=== PATIENT | female | born 1955 | race Two or more races ===

== ENCOUNTER 2020-11-01 14:16 | Outpatient (REF) | payer BC, SELFPAY | END 2020-11-01 14:17 | disposition home or self-care (01) | LOC: HO.LAB 14:16 | PROVIDERS: Visit Provider Internal Medicine | DX: Z20.822 Contact with and (suspected) exposure to COVID-19 (principal) | CPT/HCPCS: 36415; C9803; U0003 ==

== ENCOUNTER 2020-11-29 13:46 | Outpatient (REF) | payer BC, SELFPAY | END 2020-11-29 13:47 | disposition home or self-care (01) | LOC: HO.LAB 13:46 | PROVIDERS: PCP Internal Medicine; Visit Provider Internal Medicine | DX: Z20.822 Contact with and (suspected) exposure to COVID-19 (principal) | CPT/HCPCS: 36415; C9803; U0003; U0005 ==

== ENCOUNTER 2020-12-11 10:05 | Outpatient (REF) | payer BC, SELFPAY ==
[2020-12-11 10:32] LABS: MANUAL DIFF FLAG NO
[2020-12-11 10:36] LABS: Basophils Percent Auto 0.3 % (0-2); Eosinophils Absolute Auto 0.1 X10*3/uL (0.0-0.4); Eosinophils Percent Auto 1.5 % (0-4); Hematocrit 38.5 % (37-47); Hemoglobin 12.2 g/dl (12.0-16.0); Imm Gran Abs Auto 0.02 X10*3/uL (0.00-0.03); Imm Gran Pct Auto 0.3 % (0.0-0.4); Lymphocytes Percent Auto 34.3 % (20-40); Mean Corpuscular HGB Conc 31.7 g/dl (31.0-35.0); Mean Corpuscular Hemoglobin 25.5 pg (27.0-33.0); Mean Corpuscular Volume 80.5 fL (80-98); Mean Platelet Volume 10.7 fL (9.4-12.3); Monocytes Absolute Auto 0.3 X10*3/uL (0.1-1.2); Monocytes Percent Auto 5.7 % (2-11); Neutrophils Absolute Auto 3.4 X10*3/uL (2.0-8.3); Neutrophils Percent Auto 57.9 % (45-73); Platelet Count 163 X10*3/uL (160-400); Red Blood Count 4.78 X10*6/uL (4.20-5.50); Red Cell Distribution Width 14.8 % (11.0-16.0); White Blood Count 5.8 X10*3/uL (4.8-10.8)
[2020-12-11 11:00] LABS: Alanine Aminotransferase 27 U/L (0-31); Albumin Level 4.4 g/dL (3.5-5.0); Alkaline Phosphatase 110 U/L (39-117); Anion Gap 12 (12-20); Aspartate Amino Transferase 22 U/L (5-31); Bilirubin Total 0.7 mg/dL (0.0-1.0); Blood Urea Nitrogen 16 mg/dL (9-16); Carbon Dioxide 28 mmol/L (22-29); Chloride 105 mmol/L (96-108); Cholesterol 154 mg/dL; Estimated Glomerular Filt Rate > 60; Glucose Fasting 94 mg/dL (60-99); HDL Cholesterol 48 mg/dL; LDL Cholesterol Calculated 91 mg/dl; Potassium 4.3 mmol/L (3.3-5.1); Sodium 141 mmol/L (135-145); Triglycerides 79 mg/dL
[2020-12-11 11:22] LABS: Thyroid Stimulating Hormone 2.36 uIU/mL (0.32-4.0)
== END 2020-12-11 10:06 | disposition home or self-care (01) ==
LOC: HO.LAB 10:05
PROVIDERS: PCP Internal Medicine; Visit Provider Internal Medicine
DX: Z00.00 Encounter for general adult medical examination without abnormal findings (principal); E11.9 Type 2 diabetes mellitus without complications; E03.9 Hypothyroidism, unspecified
CPT/HCPCS: 36415; 80053; 80061; 84443; 85025

== ENCOUNTER 2021-01-06 13:00 | Outpatient (REF) | payer BC, SELFPAY ==
[2021-01-07 10:15] LABS: BV Int Neg Control Negative (Negative); BV Int Pos Control Positive (Positive)
[2021-01-11 16:47] LABS: HPV mRNA E6/E7 rflx Not Detected (Not Detected)
== END 2021-01-06 13:01 | disposition home or self-care (01) ==
LOC: HO.LAB 13:00
PROVIDERS: Visit Provider Obstetrics & Gynecology
DX: Z01.419 Encounter for gynecological examination (general) (routine) without abnormal findings (principal); N89.8 Other specified noninflammatory disorders of vagina; Z11.51 Encounter for screening for human papillomavirus (HPV); E03.9 Hypothyroidism, unspecified; Z88.6 Allergy status to analgesic agent; Z91.041 Radiographic dye allergy status; Z90.49 Acquired absence of other specified parts of digestive tract
CPT/HCPCS: 36415; 87480; 87510; 87624; 87660; 88142

== ENCOUNTER → 2021-02-24 08:03 | Outpatient (BNVA) | payer BC, SELFPAY | PROVIDERS: PCP Internal Medicine; Referring Provider Internal Medicine; Visit Provider Physician Assistant ==

== ENCOUNTER 2021-04-15 08:33 | Day surgery (SDC) | payer BC, SELFPAY ==
[2021-04-11 15:31] VITALS: BMI 28.1
--- NOTE | 2021-04-14 08:35 | HO.ANESPROP2 ---
Documented by User: Ludmila Reyes 04/14/21 08:36 HPI - Anesthesia Eval Consult details Narrative: 65yo F for Colonoscopy PMFSH Active Problems Active Problems: All Active Problems (Updated 02/24/21 @ 09:40 by Anne Gaxiola PA-C) Encounter for screening colonoscopy (Acute) Diverticulosis (Acute) Hypothyroidism (Acute) Past Medical History Medical History (Updated 04/15/21 @ 09:33 by Crystal Aguayo) Back pain Diverticulosis Glaucoma Hypothyroidism Iron deficiency Neuropathy Family History Family History Mother No problems noted. Father No problems noted. Surgical History Surgical History H/O colectomy H/O colonoscopy History of Hx of dilation and curettage Social History Social History Household Members: Spouse Alcohol intake: never Patient Tobacco Use Status: Never used Tobacco Use of substances other than those prescribed or required for medical reasons: No Advance Directives Information Provided: No Current occupational status: unemployed Gender identity: female Meds Allergies Allergy/AdvReac Type Severity Reaction Status Date / Time Iodinated Contrast Media Allergy Intermediate HIVES SOB Verified 04/15/21 08:51 [CONTRAST, IV] iopromide [From Ultravist] Allergy Mild urticaria Verified 04/15/21 08:51 aspirin [Aspirin] AdvReac Mild GI DISTRESS Verified 04/15/21 08:51 Home Medications Medication Instructions Recorded Confirmed Last Taken Type diclofenac sodium 50 mg 50 mg PO DAILY 12/07/20 04/11/21 Unknown History tablet,delayed release ferrous sulfate 325 mg (65 mg 325 mg PO DAILY 12/07/20 04/11/21 Unknown History iron) tablet gabapentin 100 mg capsule 100 mg PO TID 12/07/20 04/11/21 04/15/21 06:45 History latanoprost 0.005 % eye drops 1 drp OPHTHALMIC (EYE) BEDTIME 12/07/20 04/11/21 Unknown History timolol maleate 0.5 % eye drops 1 drp OPHTHALMIC (EYE) QAM 12/07/20 04/11/21 Unknown History Exam Exam Date and Time: April 14, 2021 0835 Height,Weight and Vital Signs: Height 5 ft 3 in Weight 72.121 kg Assessment and Plan Assessment Anesthesia Assessment: Chart Reviewed Documented by User: Crystal Aguayo 04/15/21 09:36 [facility] Past Medical History Medical History (Updated 04/15/21 @ 09:33 by Crystal Aguayo) Back pain Diverticulosis Glaucoma Hypothyroidism Iron deficiency Neuropathy Family History Family History Mother No problems noted. Father No problems noted. Family history of problems with anesthesia: No Surgical History Surgical History H/O colectomy H/O colonoscopy History of Hx of dilation and curettage History of Problems with Anesthesia: No Social History Social History Household Members: Spouse Alcohol intake: never Patient Tobacco Use Status: Never used Tobacco Use of substances other than those prescribed or required for medical reasons: No Advance Directives Information Provided: No Current occupational status: unemployed Gender identity: female Meds Allergies Allergy/AdvReac Type Severity Reaction Status Date / Time Iodinated Contrast Media Allergy Intermediate HIVES SOB Verified 04/15/21 08:51 [CONTRAST, IV] iopromide [From Ultravist] Allergy Mild urticaria Verified 04/15/21 08:51 aspirin [Aspirin] AdvReac Mild GI DISTRESS Verified 04/15/21 08:51 Home Medications Medication Instructions Recorded Confirmed Last Taken Type diclofenac sodium 50 mg 50 mg PO DAILY 12/07/20 04/11/21 Unknown History tablet,delayed release ferrous sulfate 325 mg (65 mg 325 mg PO DAILY 12/07/20 04/11/21 Unknown History iron) tablet gabapentin 100 mg capsule 100 mg PO TID 12/07/20 04/11/21 04/15/21 06:45 History latanoprost 0.005 % eye drops 1 drp OPHTHALMIC (EYE) BEDTIME 12/07/20 04/11/21 Unknown History timolol maleate 0.5 % eye drops 1 drp OPHTHALMIC (EYE) QAM 12/07/20 04/11/21 Unknown History Exam Height,Weight and Vital Signs: Vital Signs Temp Pulse Resp BP Pulse Ox 04/15/21 09:01 96.7 F L 65 15 145/78 H 99 Airway Mallampati Class: II TM Dist: >3cm Neck ROM: Full Partial: Upper Heart: RRR Lungs: CTAB Assessment and Plan Assessment Anesthesia Assessment: Anesthesia Plan Discussed and Chart Reviewed Final Anesthetic Review NPO: Yes ASA Class: II Final Preanesthetic Review: No Changes in Pt Med Stat, Meds/Allgs Chart Reviewed, Consent Obtained/Reviewed and Anes Risks/Benef Reviewed Patient Risk: Low Procedure Risk: Low Assessment/Block/Sedation in SS: Assess/Block/Sedation-SS Anesthetic Plan Anesthetic Plan: MAC: Disposition: Standard PACU
[2021-04-15 09:01] VITALS: BP 145/78; PULSE 65; RESP 15; TEMP 35.9; O2SAT 99
[2021-04-15] MEDS: Lactated Ringers 1,000 ML 100 ML IVCONT (09:16)
--- NOTE | 2021-04-15 09:48 | P.OP_ITS ---
Operative Note Operative Note Date of Service: 04/15/21 Narrative: Pre-op diagnosis: colon cancer screening, constipation Post-op diagnosis: other ( colon polyp, diverticulosis) Procedure: COLONOSCOPY TILL CECUM WITH SNARE POLYPECTOMY AND SUBMUCOSAL INJECTION Consent: Indications for the procedure and potential complications of bleeding, perforation, reaction to medications and missed diagnosis were discussed with the patient and informed consent was obtained. Instrument: Olympus PCF H 190 L variable stiffness pediatric colonoscope Monitoring: Vital signs and clinical assessment, intermittent blood pressure monitoring, continuous EKG monitoring, Pulse oximetry and Carbon Dioxide monitoring were done throughout the procedure. Colon withdrawl time was 19 minutes. Procedure: The patient was placed in the left lateral decubitis position and pre-procedure medications were administered. After a digital rectal examination of the ano-rectum, the video colonoscope was inserted into the rectum and advanced through the colon to the cecum. The colonoscope was slowly withdrawn in a retrograde panoramic fashion and the colon mucosa was carefully examined including a retroflexed view of the rectum. Findings and interventions are described below. Procedure Difficulty: Without difficulty Findings: Terminal Ileum: Not evaluated Cecum: Normal Ascending Colon: A 1.8 to 2 cms flat adenomatous appearing polyp raised with 2 cc of Orise solution ( submucosal injection) and removed with a hot snare Transverse Colon: Normal Descending Colon: Moderate diverticulosis Sigmoid Colon: Moderate diverticulosis Rectum: Normal Ano-rectum: Normal Colon preparation: Excellent Impression and Post Procedure Diagnosis: Colonoscopy Findings: One polyp removed - unclear if polyp versus debris was retrieved Moderate diverticulosis seen in the left colon Plan: Await pathology results Patient has an appointment on 04/27/21 in the GI Clinic with ANDREZ Proctor. Repeat Colonoscopy interval based on path results - in 3 years if polyps are adenomatous and 10 years if polyps are hyperplastic. Above findings were reviewed with the patient and colon polyps and diverticulosis handouts were given in the discharge area Surgeon: Margaux Tierney MD Anesthesia: MAC (Nely Panda CRNA) Was an Technical Trainer used for this Procedure?: No Technical Trainer: Mauricio Bojorquez Estimated blood loss (mL): 0 Pathology: other (A- ASCENDING COLON POLYP O-RISE USED) Condition: stable Disposition: PACU
--- NOTE | 2021-04-15 09:48 | MHC.SHP ---
Pre-Procedural Eval Section A Date of Service: 04/15/21 The patient is an INPATIENT: No The History & Physical has been completed within 30 days and I have reviewed it.: No Section B Chief Complaint: Screening Details of Present Illness: colon cancer screening, chronic constipation Relevant Family History (Specify if Yes): No Relevant Social History: None Present Medications: see Short Stay Collaborative assessment Medical History: Significant History (Diverticulosis Glaucoma Hypothyroidism) History of Previous Operations: Relevant previous surgery/procedure and date(s) (H/O colectomy History of ) Allergies: Allergies Allergy/AdvReac Type Severity Reaction Status Date / Time Iodinated Contrast Media Allergy Intermediate HIVES SOB Verified 04/15/21 08:51 [CONTRAST, IV] iopromide [From Ultravist] Allergy Mild urticaria Verified 04/15/21 08:51 aspirin [Aspirin] AdvReac Mild GI DISTRESS Verified 04/15/21 08:51 Review of Systems Sugical H&P ROS: Negative: Constitution, Cardiovascular and Respiratory and Yes, Specify: Gastrointestinal (constipation) Exam Surgical H&P Exam: Normal: Heart, Normal: Lungs, Normal: Extremities and Normal: Abdomen Plan Diagnosis/Plan: Unchanged I have reviewed the history and physical and performed a pertinent physical examination on my patient. No changes have occurred unless specified.
[2021-04-15 10:46] VITALS: BP 95/49; PULSE 56; RESP 16; TEMP 36.2; O2SAT 100
[2021-04-15 11:01] VITALS: BP 119/67; PULSE 57; RESP 16; O2SAT 100
== END 2021-04-15 11:51 | disposition home or self-care (01) ==
PROVIDERS: PCP Internal Medicine; Visit Provider Internal Medicine Gastroenterology
PROC: 0DJD8ZZ Inspection of Lower Intestinal Tract, Via Natural or Artificial Opening Endoscopic (ICD-10-PCS; CPT 45378; principal; 2021-04-15 09:30)
DX: Z12.11 Encounter for screening for malignant neoplasm of colon (principal); D12.2 Benign neoplasm of ascending colon; K57.30 Diverticulosis of large intestine without perforation or abscess without bleeding; K59.00 Constipation, unspecified; H40.9 Unspecified glaucoma; E03.9 Hypothyroidism, unspecified; Z79.899 Other long term (current) drug therapy; Z88.8 Allergy status to other drugs, medicaments and biological substances; Z90.49 Acquired absence of other specified parts of digestive tract
CPT/HCPCS: 45385; 45381; 88305

== ENCOUNTER → 2021-04-27 13:34 | Outpatient (BNVA) | payer BC, SELFPAY | PROVIDERS: PCP Internal Medicine; Referring Provider Internal Medicine; Visit Provider Physician Assistant ==

== ENCOUNTER 2021-05-12 11:08 | Outpatient (REF) | payer BC, SELFPAY ==
--- NOTE | ~2021-05-12 | XR_ITS ---
EXAMINATION: XR KNEE, RIGHT CLINICAL INFORMATION: Pain. COMPARISON: Right knee June 13, 2019 TECHNIQUE: Four views of the right knee. FINDINGS: Bones and soft tissues are normal. No fracture or joint effusion. Alignment is anatomic. Joint spaces are well maintained. No abnormal soft tissue calcification. XR/XR knee RT 2V IMPRESSION: Normal right knee.
== END 2021-05-12 11:09 | disposition home or self-care (01) ==
LOC: HO.XRAY 11:08
PROVIDERS: PCP Internal Medicine; Visit Provider Internal Medicine
DX: M25.561 Pain in right knee (principal)
CPT/HCPCS: 73560

== ENCOUNTER 2021-06-08 11:34 | Outpatient (REF) | payer BC, SELFPAY ==
--- NOTE | ~2021-06-08 | MM_ITS ---
EXAMINATION: MM SCREENING DIGITAL BREAST TOMOSYNTHESIS, BILATERAL CLINICAL INFORMATION: Screening. Asymptomatic. The lifetime risk of breast cancer based on the Tyrer-Cuzick Model is 6%. COMPARISON: Mammography: 06/02/2020, 05/29/2019, 05/24/2018 TECHNIQUE: Digital breast tomosynthesis is performed in both the craniocaudal and mediolateral oblique views along with computer-aided detection (CAD). Synthesized 2D images are generated from the tomosynthesis. FINDINGS: There are scattered areas of fibroglandular density (ACR BI-RADS breast composition Category b). There are no significant masses, abnormal calcifications, or other abnormalities. No developing density. The axilla and skin contours are unremarkable. MM/MM tomosynthesis screening BI IMPRESSION: No mammographic evidence of malignancy. ASSESSMENT: BI-RADS 1: Negative RECOMMENDATION: Routine annual mammography screening. This patient's information was entered into a reminder system with a target due date for their next mammogram.
== END 2021-06-08 11:35 | disposition home or self-care (01) ==
LOC: HO.MAMMO 11:34
PROVIDERS: PCP Internal Medicine; Visit Provider Internal Medicine
DX: Z12.31 Encounter for screening mammogram for malignant neoplasm of breast (principal)
CPT/HCPCS: 77063; 77067

== ENCOUNTER 2021-08-16 12:00 | Outpatient (RCR) | payer BC, SELFPAY ==
--- NOTE | 2021-06-29 13:54 | MHC.PT.EP ---
[facility] [place] Office [place] Office [place] Office [address] [phone] F: [phone] F: [phone] F: [phone] F: [phone] Physical Therapy Plan of Care Date of Evaluation: Date of Surgery: Diagnosis: Cervicalgia Assessment: Pt is a 65yo F who presents to PT with chronic neck pain and R shoulder pain that has increased over the past few months. She presents with current impairments in pain, ROM, strength, endurance, and posture. She is limited functionally by turning her head, reaching, lifting, overhead ADLs, and cooking. She is a good candidate for skilled PT services to address current impairments and to facilitate return to PLOF. Frequency and Duration: The patient will be seen 2x/week for 4 weeks Short Term Goals: Pt will improve px < 6/10 after functional mobility Pt will improve R cervical rotation by at least 5 degrees Penitentiary Goals: Pt will demonstrate full, pain-free ROM Pt will perform ADLs without compensation with pain < 2 /10 Pt will demonstrate improvement in functional mobility as evidenced by statistically significant improvements in Neck Pain Disability Index Questionnaire Treatment Plan: Modalities to reduce pain, spasms and effusion. Manual therapy to restore motion and function. Therapeutic exercise to improve strength and flexibility. Neuromuscular re-education for posture and balance. Therapeutic activities to return to functional activities of daily living. Electronically signed by: Elisabet Montejo, PT, DPT Please sign and return to therapist. Thank you for your referral.
--- NOTE | 2021-08-17 14:41 | MHC.PT.DC ---
[facility] [place] Office [place] Office [place] Office [address] Oliveira [address] [phone] F: [phone] F: [phone] F: [phone] F: [phone] Physical Therapy Discharge Report Diagnosis: Cervicalgia Date of Surgery: Date of Evaluation: 06/28/21 Date of Discharge: 08/17/21 Treatments to Date: 11 Cancellations to Date: 2 No Shows to Date: 1 Discharge Status: Achieved Goals Improved Function Independent with HEP Discharge Summary: Pt has made excellent progress since SOC and has met her STGs and LTGS. She has improved her score on Neck Pain Disability Index Questionnaire from 21/50 on initial evaluation to 5/50 on her last session on 08/16/21. She also has improved cervical ROM WNL and has achieved full ROM throughout R shoulder. She is I with her HEP. She is being D/C from skilled PT services at this time. Pt has printed copy of HEP and theraband. She reports no further questions or concerns for PT at this time. No further skilled PT intervention indicated at this time. Electronically signed by: Elisabet Montejo, PT, DPT Please sign and return to therapist. Thank you for your referral.
== END 2021-08-17 14:41 | disposition home or self-care (01) ==
LOC: HO.PT 12:00
PROVIDERS: PCP Internal Medicine; Visit Provider Internal Medicine
DX: M54.2 Cervicalgia (principal)
CPT/HCPCS: 97110; 97140; 97161; 97530

== ENCOUNTER 2021-08-23 13:42 | Outpatient (REF) | payer BC, SELFPAY | END 2021-08-23 13:43 | disposition home or self-care (01) | LOC: HO.LAB 13:42 | PROVIDERS: Visit Provider Internal Medicine | DX: Z20.822 Contact with and (suspected) exposure to COVID-19 (principal) | CPT/HCPCS: C9803; U0003; U0005 ==

== ENCOUNTER → 2022-01-10 13:45 | Outpatient (BNVA) | payer BC, SELFPAY | PROVIDERS: Visit Provider Advanced Practice Midwife | DX: Z13.89 Encounter for screening for other disorder (principal) ==

== ENCOUNTER 2022-03-09 11:02 | Outpatient (REF) | payer BC, SELFPAY ==
--- NOTE | ~2022-03-09 | XR_ITS ---
EXAMINATION: XR SHOULDER, RIGHT CLINICAL INFORMATION: Pain. COMPARISON: Radiograph of the right shoulder dated from 08/31/2016. TECHNIQUE: Four views of the right shoulder. FINDINGS: No acute fractures or malalignment. No significant joint space narrowing. No marginal osteophytosis. No osseous erosions. No abnormal soft tissue calcifications. XR/XR shoulder RT min 2V IMPRESSION: Normal examination of the right shoulder.
[2022-03-09 11:56] LABS: MANUAL DIFF FLAG NO
[2022-03-09 11:58] LABS: Basophils Percent Auto 0.6 % (0-2); Eosinophils Absolute Auto 0.1 X10*3/uL (0.0-0.4); Eosinophils Percent Auto 1.8 % (0-4); Hematocrit 38.8 % (37.0-47.0); Imm Gran Abs Auto 0.01 X10*3/uL (0.00-0.03); Imm Gran Pct Auto 0.2 % (0.0-0.4); Mean Corpuscular HGB Conc 30.9 g/dl (31.0-35.0); Mean Corpuscular Hemoglobin 25.2 pg (27.0-33.0); Mean Corpuscular Volume 81.5 fL (80.0-98.0); Mean Platelet Volume 9.7 fL (9.4-12.3); Monocytes Absolute Auto 0.4 X10*3/uL (0.1-1.2); Monocytes Percent Auto 8.2 % (2-11); Neutrophils Absolute Auto 2.5 x10*3/uL (2.0-8.3); Neutrophils Percent Auto 49.2 % (45-73); Platelet Count 140 X10*3/uL (160-400); Red Blood Count 4.76 X10*6/uL (4.20-5.50); Red Cell Distribution Width 15.4 % (11.0-16.0)
[2022-03-09 12:17] LABS: Alanine Aminotransferase 24 U/L (0-31); Albumin Level 4.1 g/dL (3.5-5.0); Alkaline Phosphatase 99 U/L (39-117); Anion Gap 12 (12-20); Aspartate Amino Transferase 22 U/L (5-31); Bilirubin Total 0.9 mg/dL (0.0-1.0); Blood Urea Nitrogen 12 mg/dL (9-16); Calcium 9.2 mg/dL (8.4-10.2); Carbon Dioxide 24 mmol/L (22-29); Chloride 108 mmol/L (96-108); Cholesterol 142 mg/dL; Estimated Glomerular Filt Rate > 60; Glucose Fasting 77 mg/dL (60-99); HDL Cholesterol 45 mg/dL; LDL Cholesterol Calculated 83 mg/dl; Potassium 4.3 mmol/L (3.3-5.1); Sodium 140 mmol/L (135-145); Total Protein 7.1 g/dL (6.5-8.0); Triglycerides 70 mg/dL
[2022-03-09 12:32] LABS: Thyroid Stimulating Hormone 0.55 uIU/mL (0.32-4.0)
== END 2022-03-09 11:03 | disposition home or self-care (01) ==
LOC: HO.XRAY 11:02
PROVIDERS: PCP Internal Medicine; Visit Provider Internal Medicine
DX: Z00.00 Encounter for general adult medical examination without abnormal findings (principal); Z13.0 Encounter for screening for diseases of the blood and blood-forming organs and certain disorders involving the immune mechanism; M25.511 Pain in right shoulder
CPT/HCPCS: 36415; 73030; 80053; 80061; 84443; 85025

== ENCOUNTER 2022-06-12 11:01 | Outpatient (REF) | payer BC, SELFPAY ==
--- NOTE | ~2022-06-12 | MM_ITS ---
EXAMINATION: MM SCREENING DIGITAL BREAST TOMOSYNTHESIS, BILATERAL CLINICAL INFORMATION: Screening. Asymptomatic. The lifetime risk of breast cancer based on the Tyrer-Cuzick Model is 7%. COMPARISON: Mammography: 06/08/2021, 06/02/2020, 05/29/2019 TECHNIQUE: Digital breast tomosynthesis is performed in both the craniocaudal and mediolateral oblique views along with computer-aided detection (CAD). Synthesized 2D images are generated from the tomosynthesis. FINDINGS: There are scattered areas of fibroglandular density (ACR BI-RADS breast composition Category b). There are no significant masses, abnormal calcifications, or other abnormalities. Parenchymal pattern is similar to prior studies. The axilla and skin contours are unremarkable. No significant changes. MM/MM tomosynthesis screening BI IMPRESSION: No mammographic evidence of malignancy. ASSESSMENT: BI-RADS 1: Negative RECOMMENDATION: Routine annual mammography screening. This patient's information was entered into a reminder system with a target due date for their next mammogram.
== END 2022-06-12 11:02 | disposition home or self-care (01) ==
LOC: HO.MAMMO 11:01
PROVIDERS: PCP Internal Medicine; Visit Provider Internal Medicine
DX: Z12.31 Encounter for screening mammogram for malignant neoplasm of breast (principal)
CPT/HCPCS: 77063; 77067

== ENCOUNTER → 2023-01-12 14:04 | Outpatient (BNVA) | payer MEDICARE, SELFPAY | PROVIDERS: PCP Internal Medicine; Visit Provider Advanced Practice Midwife ==

== ENCOUNTER 2023-06-25 10:50 | Outpatient (REF) | payer OTHER, SELFPAY | END 2023-06-25 10:51 | disposition home or self-care (01) | LOC: HO.MAMMO 10:50 | PROVIDERS: PCP Internal Medicine; Visit Provider Internal Medicine | DX: Z12.31 Encounter for screening mammogram for malignant neoplasm of breast (principal) | CPT/HCPCS: 77063; 77067 ==

== ENCOUNTER → 2023-06-25 11:00 | Outpatient (BNV) | payer OTHER, SELFPAY | PROVIDERS: PCP Internal Medicine; Visit Provider Radiology Diagnostic Radiology | DX: Z12.31 Encounter for screening mammogram for malignant neoplasm of breast (principal) | CPT/HCPCS: 77063; 77067 ==

== ENCOUNTER 2023-06-28 10:44 | Outpatient (AMB) | payer OTHER, SELFPAY ==
[2023-06-28 10:46] VITALS: BP 158/82; PULSE 65; O2SAT 99; BMI 29.2
--- NOTE | 2023-06-28 10:46 | MHC.PC.OV ---
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 Accompanied by: Self / Same As Patient Allergies Iodinated Contrast Media [CONTRAST, IV] Allergy (Intermediate, Verified 06/28/23 10:46) HIVES SOB iopromide [From Ultravist] Allergy (Mild, Verified 06/28/23 10:46) urticaria aspirin [Aspirin] Adverse Reaction (Mild, Verified 06/28/23 10:46) GI DISTRESS Medication List - Last Reconciled 06/28/23 by Bobo Ballesteros MD atorvastatin 40 mg PO DAILY calcium carbonate-vitamin D3 600 mg-12.5 mcg (500 unit) (Calcium 600 with Vitamin D3) 2 caps PO DAILY citalopram 20 mg PO DAILY diclofenac sodium 50 mg PO DAILY ferrous sulfate (FeroSul) 325 mg PO DAILY gabapentin 100 mg PO TID latanoprost 0.005% 1 drp ophthalmic (eye) BEDTIME levothyroxine 100 mcg PO DAILY psyllium husk (Metamucil) 1 tbsp PO DAILY 30 days timolol maleate 0.5% 1 drp ophthalmic (eye) QAM Tobacco use date assessed: 06/28/23 Fall risk assessment: No Falls in past year Last assessed Fall Risk: 06/28/23 Dental Screening Dental Screen Date: 06/28/23 Did you have a dental visit in the last 12 months?: Yes Did you have a dental problem in the last 6 months where you did not have access to dental care?: No Was dental information given to patient?: Patient has dentist HPI check up HPI Details depression hyperlipidemia and hypothyroidism; needs adjustment in rx [facility] Medical History (Updated 06/28/23 @ 11:16 by Bobo Ballesteros MD) Iron deficiency Back pain Neuropathy Diverticulosis Glaucoma Hypothyroidism Surgical History Hx of dilation and curettage H/O colonoscopy H/O colectomy History of Family History Mother No problems noted. Father No problems noted. Social History Household Members: Spouse Housing: House Alcohol intake: never Patient Tobacco Use Status: Never used Tobacco e-Cigarette/Vaping Use: Never Used Second Hand Smoke Exposure: No service: No Current occupational status: unemployed Gender identity: Female Cognitive needs: No Hearing needs: No Vision needs: Yes (glasses) Questionnaire PHQ-9 Over the last 2 weeks, how often have you been bothered by any of the following problems? 1. Little interest or pleasure in doing things: more than half the days 2. Feeling down, depressed, or hopeless: more than half the days 3. Trouble falling or staying asleep, or sleeping too much: more than half the days 4. Feeling tired or having little energy: more than half the days 5. Poor appetite or overeating: more than half the days 6. Feeling bad about yourself - or that you are a failure or have let yourself or your family down: more than half the days 7. Trouble concentrating on things, such as reading the newspaper or watching television: more than half the days 8. Moving or speaking so slowly that other people could have noticed. Or the opposite - being so fidgety or restless that you have been moving around a lot more than usual: more than half the days 9. Thoughts that you would be better off or of hurting yourself in some way: more than half the days Total score: 18 Depression Screening Interpretation: Negative 36787 - PHQ-9 Billing: Yes Source: Developed by Drs. Yoshi Nur, Cristine Jules, Leno Gómez and colleagues, with an educational vidhya from [employer], a Division of [employer]. Thrive Questionnaire Date Thrive assessed: 06/28/23 I am a: Patient What is your living situation today?: I have a steady place to live Within the past 12 months, did the food you bought not last and you didn't have the money to get more?: Never true Within the past 12 months, did you worry whether your food would run out before you got money to buy more?: Never true Do you have trouble paying for medicines?: No Do you have trouble getting transportation to medical appointments?: No Do you have trouble paying your heating and electricity bill?: No Do you have trouble taking care of your child, family member or friend?: No Do you have trouble with day-to-day activities such as bathing, preparing meals, shopping, managing finances, etc.?: No Are you currently unemployed and looking for a job?: No Are you interested in more education?: No Please select the resources that you would like help with: None AUDIT C Alcohol Use Questionnaire (AUDIT-C) 1. How often do you have a drink containing alcohol?: Never Total Score: 0 Score Reviewed/Action Taken: Yes AMANDA-7 AMB Questionnaire AMANDA-7 Date AMANDA - 7 assessed: 06/28/23 Feeling nervous, anxious, or on edge: 0 = Not at all Not being able to stop or control worryin = Not at all Worrying too much about different things: 0 = Not at all Trouble relaxin = Not at all Being so restless that it is hard to sit still: 0 = Not at all Becoming easily annoyed or irritable: 0 = Not at all Feeling afraid as if something awful might happen: 0 = Not at all Total AMANDA-7 score (0-4 normal; 5-9 mild; 10-14 moderate; 15-21 severe): 0 Source: Developed by Drs. Yoshi Nur, Cristine Jules, Leno Gómez and colleagues, with an educational vidhya from [employer] a Division [employer]. AMANDA-7 Assessment Billing AMANDA-7 Assessment Tool: AMANDA-7 Assessment 84115 Review of Systems Const Denies chills, Denies headache(s) and Denies weight loss ENT Denies headache(s) Card Denies chest pain, Denies syncope, Denies irregular heart rhythm and Denies dyspnea Resp Denies chest congestion, Denies cough and Denies dyspnea GI Denies abdominal pain, Denies change in stool character, Denies nausea and Denies vomiting Musc Denies deformity and Denies joint swelling Neuro Denies syncope and Denies headache(s) Physical exam (Primary Care) Vital Signs: Last Vital Signs Pulse 65 06/28/23 10:46 BP 158/82 H 06/28/23 10:46 Pulse Ox 99 06/28/23 10:46 Oxygen Delivery Method Room Air 06/28/23 10:46 BMI result Body Mass Index 29.2 Tobacco/Smoking Status: Tobacco use Status Tobacco use date assessed 06/28/23 06/28/23 10:48 Patient Tobacco Use Status Never used Tobacco 06/28/23 10:48 e-Cigarette/Vaping Use Never Used 06/28/23 10:48 PHQ-9: PHQ-9 Score PHQ-9: Total score 18 06/28/23 10:55 Depression Screening Interpretation: Negative Thrive Assessment: Date of Thrive Assessment Date Thrive assessed 06/28/23 06/28/23 10:48 Const General: cooperative, comfortable, no acute distress and alert Neck Neck: Yes no lymphadenopathy Thyroid: Thyroid normal Resp Effort & Inspection: normal respiratory effort Auscultation: clear to auscultation bilaterally Percussion: percussion normal Cardio Jugular venous distension: no JVD Palpation: normal PMI Rate: regular rate Rhythm: regular rhythm Heart sounds: S1 normal heart sound present and S2 normal heart sound present GI Inspection: Yes normal to inspection Palpation (GI): No hepatosplenomegaly present Skin General skin exam: no rashes or lesions noted Extrem General: Yes no clubbing, cyanosis or edema Assessment and Plan Assessment & Plan (1) Hypothyroidism: Code(s): E03.9 - Hypothyroidism, unspecified Plan: stable; do labs (2) Hyperlipidemia: Code(s): E78.5 - Hyperlipidemia, unspecified Plan: stable; do labs (3) Depression: Code(s): F32.A - Depression, unspecified Plan: start rx Orders: Orders Thyroid Stimulating Hormone Today E03.9 - Hypothyroidism, unspecified Complete Blood Count Auto Diff Today D64.9 - Anemia, unspecified XR foot LT 2V Today M79.672 - Pain in left foot Lipid Panel Today E78.5 - Hyperlipidemia, unspecified Comprehensive [place]. Panel Fast Today N28.9 - Disorder of kidney and ureter, unspecified IRON PROFILE Today E61.1 - Iron deficiency Medications: New citalopram 20 mg PO DAILY 30 tabs 3RF Coding Level of Care Code Est Pt Level 4 (50932) Diagnoses Hypothyroidism E03.9 Hyperlipidemia E78.5 Depression F32.A Additional Codes AMANDA-7 Assessment Billing - AMANDA-7 Assessment Tool: AMANDA-7 Assessment [id number] ([id number])
== END 2023-06-28 11:47 | disposition home or self-care (01) ==
PROVIDERS: PCP Internal Medicine; Visit Provider Internal Medicine
DX: E03.9 Hypothyroidism, unspecified (principal); E78.5 Hyperlipidemia, unspecified; F32.A Depression, unspecified
CPT/HCPCS: 99214

== ENCOUNTER 2023-06-29 10:57 | Outpatient (REF) | payer OTHER, SELFPAY ==
--- NOTE | ~2023-06-29 | XR_ITS ---
EXAMINATION: XR FOOT, LEFT CLINICAL INFORMATION: Pain in left foot COMPARISON: None available. TECHNIQUE: AP, lateral, and oblique views of the left foot. FINDINGS: The bones are diffusely osteopenic. There is soft tissue swelling in the forefoot. No fracture. Alignment is anatomic. Joint spaces are maintained. Posterior plantar coronal cranial spur and Achilles enthesophyte are noted. Punctate calcification is seen at the insertion of the Achilles tendon. XR/XR foot LT 2V IMPRESSION: No acute bony abnormality.
[2023-06-29 11:16] LABS: MANUAL DIFF FLAG NO
[2023-06-29 11:54] LABS: Basophils Percent Auto 0.5 % (0-2); Eosinophils Absolute Auto 0.1 X10*3/uL (0.0-0.4); Hematocrit 39.5 % (37.0-47.0); Hemoglobin 12.5 g/dl (12.0-16.0); Imm Gran Abs Auto 0.03 X10*3/uL (0.00-0.03); Imm Gran Pct Auto 0.5 % (0.0-0.4); Lymphocytes Absolute Auto 2.5 X10*3/uL (1.2-4.9); Lymphocytes Percent Auto 41.7 % (20-40); Mean Corpuscular HGB Conc 31.6 g/dl (31.0-35.0); Mean Corpuscular Hemoglobin 25.4 pg (27.0-33.0); Mean Corpuscular Volume 80.1 fL (80.0-98.0); Mean Platelet Volume 10.5 fL (9.4-12.3); Monocytes Absolute Auto 0.4 X10*3/uL (0.1-1.2); Monocytes Percent Auto 5.8 % (2-11); Neutrophils Percent Auto 49.5 % (45-73); Platelet Count 179 X10*3/uL (160-400); Red Blood Count 4.93 X10*6/uL (4.20-5.50); Red Cell Distribution Width 16.3 % (11.0-16.0); White Blood Count 6.1 X10*3/uL (4.8-10.8)
[2023-06-29 14:25] LABS: Alanine Aminotransferase 20 U/L (0-31); Albumin Level 4.5 g/dL (3.5-5.0); Alkaline Phosphatase 96 U/L (39-117); Anion Gap 14 (12-20); Aspartate Amino Transferase 21 U/L (5-31); Bilirubin Total 0.9 mg/dL (0.0-1.0); Blood Urea Nitrogen 13 mg/dL (9-16); Calcium 9.7 mg/dL (8.4-10.2); Carbon Dioxide 24 mmol/L (22-29); Chloride 109 mmol/L (96-108); Cholesterol 152 mg/dL (<200); Estimated Glomerular Filt Rate > 60; Glucose Fasting 87 mg/dL (60-99); HDL Cholesterol 47 mg/dL (>40); Iron 72 mcg/dL (30-160); LDL Cholesterol Calculated 80 mg/dL (<100); Percent Iron Saturation 27 % (15-50); Potassium 3.9 mmol/L (3.3-5.1); Sodium 143 mmol/L (135-145); Thyroid Stimulating Hormone 1.07 uIU/mL (0.32-4.0); Total Iron Binding Capacity 270 mcg/dL (228-428); Total Protein 7.6 g/dL (6.5-8.0); Triglycerides 129 mg/dL (<150); Unsaturated Iron Binding 198 ug/dL
== END 2023-06-29 10:58 | disposition home or self-care (01) ==
LOC: HO.LAB 10:57
PROVIDERS: PCP Internal Medicine; Visit Provider Internal Medicine
DX: E03.9 Hypothyroidism, unspecified (principal); E78.5 Hyperlipidemia, unspecified; E61.1 Iron deficiency; N28.9 Disorder of kidney and ureter, unspecified; D64.9 Anemia, unspecified; M79.672 Pain in left foot; E66.1 Drug-induced obesity
CPT/HCPCS: 36415; 73620; 80053; 80061; 83540; 84443; 85025

== ENCOUNTER 2024-01-16 14:39 | Outpatient (AMB) | payer OTHER, SELFPAY ==
--- NOTE | 2024-01-16 14:40 | MHC.OFFVIS ---
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 She is doing well with no concerns. Attempting to eat a healthy diet with calcium and vitamin D and stays active. Currently not sexually active. Denies any vaginal dryness or irritation. Last pap smear; 2020. Last mammogram; 2022. Colonoscopy is UTD. Denies any family history of breast, ovarian or colon cancer. [facility] Medical History Iron deficiency Back pain Neuropathy Diverticulosis Glaucoma Hypothyroidism Surgical History Hx of dilation and curettage H/O colonoscopy H/O colectomy History of Family History Mother No problems noted. Father No problems noted. Social History Household Members: Spouse Housing: House Alcohol intake: never Patient Tobacco Use Status: Never used Tobacco e-Cigarette/Vaping Use: Never Used Second Hand Smoke Exposure: No service: No Current occupational status: unemployed Gender identity: Female Cognitive needs: No Hearing needs: No Vision needs: Yes (glasses) Female Reproductive History Menstrual Total pregnancies: 2 Full term: 1 Number of Living Children: 1 Date of last pap smear: 01/06/21 (neg pap and hpv) Date of Mammogram: 06/25/23 (Birad 1) Review of Systems Const All systems reviewed & are unremarkable except as noted in HPI and below Reports as per HPI Eyes Reports no additional complaints ENT Reports no additional complaints Card Reports no additional complaints Resp Reports no additional complaints GI Reports as per HPI and Reports no additional complaints Reports as per HPI Musc Reports no additional complaints Skin/Breast Reports as per HPI Neuro Reports no additional complaints Psych Reports no additional complaints Endo Reports no additional complaints Dino/Lymph Reports no additional complaints Aller/Immun Reports no additional complaints Physical Exam Vital Signs: Last Vital Signs BP 122/80 01/16/24 14:41 BMI result Body Mass Index 29.4 Const General: cooperative, healthy appearing, no acute distress, well developed and alert Orientation/consciousness: patient oriented x3 HEENT Head: Yes normal to inspection Eyes General: appearance normal, both eyes and all related structures Neck Neck: Yes normal visual inspection Thyroid: Thyroid normal Chest Chest palpation & inspection: normal inspection of the chest and other (no puckering, dimpling, peau de orange, retraction, discharge, masses) Breast/axilla inspection: normal inspection of the breasts Breast/axilla palpation: normal palpation of the breasts Resp Effort & Inspection: normal respiratory effort GI Inspection: Yes normal to inspection and Yes scar Palpation (GI): Soft to palpation Rectal Exam - Female: deferred General: Yes bladder normal to palpation External Female Exam: normal external appearance and normal appearance of the urethra Speculum Exam - Vagina: normal appearance of the vagina, normal palpation, normal vaginal discharge and vagina atrophic Speculum Exam - Cervix: normal appearance of the cervix and normal palpation Bimanual exam- vagina & uterus: normal bimanual exam, normal palpation, uterine size normal, bladder normal to palpation, normal palpation and non-tender Bimanual Exam- Adnexa, other: no masses Skin General skin exam: no rashes or lesions noted Rashes: no rashes Neuro General: patient oriented x3 Cognition (Neuro): normal cognition Extrem General: Yes normal to inspection Psych Attitude: cooperative Thought process: Normal thought process present Assessment & Plan Assessment & Plan (1) Encounter for well woman exam with routine gynecological exam: Code(s): Z01.419 - Encounter for gynecological examination (general) (routine) without abnormal findings Plan Discussed: Current recommendations for pap smears per ASCCP guidelines. Breast awareness, periodic self breast exams and yearly mammogram. Maintain a healthy lifestyle, well balanced diet including Calcium 1,200 mg and Vitamin D 600 IU daily, and routine exercise. Contact the office with any postmenopausal bleeding. Patient verbalizes understanding and agrees to the plan of care. She was given opportunity to ask questions and all questions were answered to the best of my ability. 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 This note is constructed using voice recognition software. While every effort has been made to ensure accuracy, sole stapler welt errors may have been included. Coding Level of Care Code Est Pt Prev Care >65y(23793) Diagnoses Encounter for well woman exam with routine gynecological exam Z01.419
[2024-01-16 14:41] VITALS: BP 122/80; BMI 29.4
== END 2024-01-16 15:17 | disposition home or self-care (01) ==
LOC: HO.HWS 14:39
PROVIDERS: PCP Internal Medicine; Visit Provider Advanced Practice Midwife
DX: Z01.419 Encounter for gynecological examination (general) (routine) without abnormal findings (principal)
CPT/HCPCS: 99397

== ENCOUNTER → 2024-01-16 14:39 | Outpatient (BNVA) | payer OTHER, SELFPAY | PROVIDERS: PCP Internal Medicine; Visit Provider Advanced Practice Midwife ==

== ENCOUNTER 2024-04-29 13:03 | Outpatient (AMB) | payer OTHER, SELFPAY ==
[2024-04-29 13:11] VITALS: BP 150/82; PULSE 78; O2SAT 97; BMI 29.4
--- NOTE | 2024-04-29 13:11 | MHC.PC.OV ---
Vital Signs 04/29/24 13:11 Height 5 ft 3 in Weight 166 lb BMI 29.4 BP 150/82 H Blood Pressure Location Lt brachial Position Sitting Pulse 78 Pulse Source Pulse Oximeter Pulse Oximetry (%) 97 Oxygen Delivery Method Room Air Intake Visit Reasons: cataract 05/19/24 lt ,05/27 rt- see notes Director Mobile Required: No Accompanied by: Self / Same As Patient Allergies Iodinated Contrast Media [CONTRAST, IV] Allergy (Intermediate, Verified 01/16/24 14:41) HIVES SOB iopromide [From Ultravist] Allergy (Mild, Verified 01/16/24 14:41) urticaria aspirin [Aspirin] Adverse Reaction (Mild, Verified 01/16/24 14:41) GI DISTRESS Tobacco use date assessed: 06/28/23 Dental Screening Dental Screen Date: 06/28/23 HPI cataract 05/19/24 lt ,05/27 rt- see notes HPI Details having bilateral cataract repairs; has hypothyroidism and hyperlipidemia controlled; depression stable [facility] Medical History (Reviewed 01/16/24 @ 14:44 by Kristina Taylor [facility]) Iron deficiency Back pain Neuropathy Diverticulosis Glaucoma Hypothyroidism Surgical History Hx of dilation and curettage H/O colonoscopy H/O colectomy History of Family History Mother No problems noted. Father No problems noted. Social History Household Members: Spouse Housing: House Alcohol intake: never Patient Tobacco Use Status: Never used Tobacco e-Cigarette/Vaping Use: Never Used Second Hand Smoke Exposure: No service: No Current occupational status: unemployed Gender identity: Female Cognitive needs: No Hearing needs: No Vision needs: Yes (glasses) Questionnaire PHQ-9 Over the last 2 weeks, how often have you been bothered by any of the following problems? 1. Little interest or pleasure in doing things: not at all 2. Feeling down, depressed, or hopeless: not at all 3. Trouble falling or staying asleep, or sleeping too much: not at all 4. Feeling tired or having little energy: not at all 5. Poor appetite or overeating: not at all 6. Feeling bad about yourself - or that you are a failure or have let yourself or your family down: not at all 7. Trouble concentrating on things, such as reading the newspaper or watching television: not at all 8. Moving or speaking so slowly that other people could have noticed. Or the opposite - being so fidgety or restless that you have been moving around a lot more than usual: not at all 9. Thoughts that you would be better off or of hurting yourself in some way: not at all Total score: 0 Depression Screening Interpretation: Negative Depression Screening Done: Yes 00409 - PHQ-9 Billing: Yes Source: Developed by Drs. Yoshi Nur, Cristine Jules, Leno Gómez and colleagues, with an educational vidhya from [employer]. Thrive Questionnaire Date Thrive assessed: 04/29/24 I am a: Patient What is your living situation today?: I have a steady place to live Within the past 12 months, did the food you bought not last and you didn't have the money to get more?: Never true Within the past 12 months, did you worry whether your food would run out before you got money to buy more?: Never true Do you have trouble paying for medicines?: No Do you have trouble getting transportation to medical appointments?: No Do you have trouble paying your heating and electricity bill?: No Do you have trouble taking care of your child, family member or friend?: No Do you have trouble with day-to-day activities such as bathing, preparing meals, shopping, managing finances, etc.?: No Are you currently unemployed and looking for a job?: No Are you interested in more education?: No Please select the resources that you would like help with: None Currently or been in a relationship where the following occur: No concerns reported THRIVE Score: 0 AUDIT C Alcohol Use Questionnaire (AUDIT-C) 1. How often do you have a drink containing alcohol?: Never Total Score: 0 Score Reviewed/Action Taken: Yes AMANDA-7 AMB Questionnaire AMANDA-7 Date AMANDA - 7 assessed: 04/29/24 Feeling nervous, anxious, or on edge: 0 = Not at all Not being able to stop or control worryin = Not at all Worrying too much about different things: 0 = Not at all Trouble relaxin = Not at all Being so restless that it is hard to sit still: 0 = Not at all Becoming easily annoyed or irritable: 0 = Not at all Feeling afraid as if something awful might happen: 0 = Not at all Total AMANDA-7 score (0-4 normal; 5-9 mild; 10-14 moderate; 15-21 severe): 0 Source: Developed by Drs. Yoshi Nur, Cristine Jules, Leno Gómez and colleagues, with an educational vidhya from [employer]. AMANDA-7 Assessment Billing AMANDA-7 Assessment Tool: AMANDA-7 Assessment [id number] Review of Systems Const Denies chills, Denies fatigue, Denies headache(s) and Denies weight loss Eyes Denies change in vision, Denies diplopia and Denies eye pain ENT Denies vertigo, Denies dizziness, Denies headache(s) and Denies nasal discharge Card Denies chest pain, Denies rapid heart rate and Denies dyspnea on exertion Resp Denies chest congestion, Denies cough, Denies pain with cough and Denies dyspnea on exertion GI Denies abdominal pain, Denies hematochezia and Denies change in bowel habits Musc Denies myalgias, Denies arthralgias and Denies joint swelling Skin/Breast Denies lesions and Denies unusual bruising Neuro Denies vertigo, Denies dizziness, Denies headache(s) and Denies focal weakness Endo Denies fatigue Physical exam (Primary Care) Vital Signs: Last Vital Signs Pulse 78 04/29/24 13:11 BP 150/82 H 04/29/24 13:11 Pulse Ox 97 04/29/24 13:11 Oxygen Delivery Method Room Air 04/29/24 13:11 BMI result Body Mass Index 29.4 Tobacco/Smoking Status: Tobacco use Status Tobacco use date assessed 06/28/23 04/29/24 13:16 Patient Tobacco Use Status Never used Tobacco 04/29/24 13:16 e-Cigarette/Vaping Use Never Used 04/29/24 13:16 PHQ-9: PHQ-9 Score PHQ-9: Total score 0 04/29/24 13:16 Depression Screening Interpretation: Negative Thrive Assessment: Date of Thrive Assessment Date Thrive assessed 04/29/24 04/29/24 13:16 Currently or been in a relationship where the following occur: No concerns reported Const General: cooperative, healthy appearing and no acute distress Orientation/consciousness: oriented to person, oriented to place and oriented to time HENMT Head: Yes normal to inspection, Yes normocephalic and Yes atraumatic Mouth: Normal oral and palatal mucosa present and tongue normal Throat: Yes posterior oropharynx normal and Yes uvula midline Eyes General: appearance normal, both eyes and all related structures Neck Neck: Yes normal visual inspection, Yes full ROM and Yes no lymphadenopathy Thyroid: Thyroid normal Carotids: normal carotid upstroke Chest Chest palpation & inspection: normal inspection of the chest Resp Effort & Inspection: normal respiratory effort and able to speak in complete sentences Auscultation: clear to auscultation bilaterally Cardio Jugular venous distension: no JVD Palpation: normal PMI Rate: regular rate Rhythm: regular rhythm Heart sounds: S1 normal heart sound present and S2 normal heart sound present GI Inspection: Yes normal to inspection Palpation (GI): Soft to palpation and No hepatosplenomegaly present Auscultation: normal bowel sounds General: Yes no CVA tenderness Back/Spine/Pelvis Back: no CVA tenderness Skin General skin exam: no rashes or lesions noted Neuro General: oriented to person, oriented to place and oriented to time Extrem General: Yes normal to inspection and Yes full ROM Assessment and Plan Assessment & Plan (1) Preop exam for internal medicine: Code(s): Z01.818 - Encounter for other preprocedural examination Plan: low risk for cardiovascular complications; cleared for surgery (2) Depression: Code(s): F32.A - Depression, unspecified Plan: stable; same rx (3) Hyperlipidemia: Code(s): E78.5 - Hyperlipidemia, unspecified Plan: stable; same rx (4) Hypothyroidism: Code(s): E03.9 - Hypothyroidism, unspecified Plan: stable; same rx Coding Level of Care Code Est Pt Level 4 (94816) Diagnoses Preop exam for internal medicine Z01.818 Depression F32.A Hyperlipidemia E78.5 Hypothyroidism E03.9 Additional Codes AMANDA-7 Assessment Billing - AMANDA-7 Assessment Tool: AMANDA-7 Assessment [id number] ([id number])
== END 2024-04-29 13:28 | disposition home or self-care (01) ==
PROVIDERS: PCP Internal Medicine; Visit Provider Internal Medicine
DX: E78.5 Hyperlipidemia, unspecified (principal); Z01.818 Encounter for other preprocedural examination; F32.A Depression, unspecified; E03.9 Hypothyroidism, unspecified
CPT/HCPCS: 99214

== ENCOUNTER 2024-06-24 12:54 | Outpatient (AMB) | payer OTHER, SELFPAY ==
--- NOTE | 2024-06-24 12:55 | A.OFFPC_ITS ---
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 Accompanied by: Self / Same As Patient Allergies Iodinated Contrast Media [CONTRAST, IV] Allergy (Intermediate, Verified 06/24/24 12:56) HIVES SOB iopromide [From Ultravist] Allergy (Mild, Verified 06/24/24 12:56) urticaria aspirin [Aspirin] Adverse Reaction (Mild, Verified 06/24/24 12:56) GI DISTRESS Medication List - Last Reconciled 06/24/24 by Bobo Ballesteros MD atorvastatin 40 mg PO DAILY calcium carbonate-vitamin D3 600 mg-10 mcg (400 unit) 1 cap PO BID 90 days citalopram 20 mg PO DAILY diclofenac sodium 50 mg PO DAILY ferrous sulfate (FeroSul) 325 mg PO DAILY gabapentin 100 mg PO TID latanoprost 0.005% 1 drp ophthalmic (eye) BEDTIME levothyroxine 100 mcg PO DAILY psyllium husk (Metamucil) 1 tbsp PO DAILY 30 days timolol maleate 0.5% 1 drp ophthalmic (eye) QAM Tobacco use date assessed: 06/28/23 Fall risk assessment: No Falls in past year Last assessed Fall Risk: 06/24/24 Dental Screening Dental Screen Date: 06/24/24 Did you have a dental visit in the last 12 months?: No Did you have a dental problem in the last 6 months where you did not have access to dental care?: No Was dental information given to patient?: Patient has dentist HPI annual exam HPI Details hypothyroidism and hyperlipidemia on rx; doing well [facility] Medical History Iron deficiency Back pain Neuropathy Diverticulosis Glaucoma Hypothyroidism Surgical History Hx of dilation and curettage H/O colonoscopy H/O colectomy History of Family History Mother No problems noted. Father No problems noted. Social History (Reviewed 04/29/24 @ 13:15 by BARBRA Kirkland Household Members: Spouse Housing: House Alcohol intake: never Patient Tobacco Use Status: Never used Tobacco Tobacco use type: Cigarette e-Cigarette/Vaping Use: Never Used Second Hand Smoke Exposure: No service: No Current occupational status: unemployed Gender identity: Female Cognitive needs: No Hearing needs: No Vision needs: Yes (glasses) Questionnaire PHQ-9 Over the last 2 weeks, how often have you been bothered by any of the following problems? 1. Little interest or pleasure in doing things: more than half the days 2. Feeling down, depressed, or hopeless: several days 3. Trouble falling or staying asleep, or sleeping too much: not at all 4. Feeling tired or having little energy: nearly every day 5. Poor appetite or overeating: several days 6. Feeling bad about yourself - or that you are a failure or have let yourself or your family down: not at all 7. Trouble concentrating on things, such as reading the newspaper or watching television: nearly every day 8. Moving or speaking so slowly that other people could have noticed. Or the opposite - being so fidgety or restless that you have been moving around a lot more than usual: nearly every day 9. Thoughts that you would be better off or of hurting yourself in some way: not at all Total score: 13 Depression Screening Done: Yes 99016 - PHQ-9 Billing: Yes Source: Developed by Drs. Yoshi Nur, Cristine Jules, Leno Gómez and colleagues, with an educational vidhya from [employer]. Thrive Questionnaire Date Thrive assessed: 06/24/24 I am a: Patient What is your living situation today?: I have a steady place to live Within the past 12 months, did the food you bought not last and you didn't have the money to get more?: I choose not to answer this question Within the past 12 months, did you worry whether your food would run out before you got money to buy more?: I choose not to answer this question Do you have trouble paying for medicines?: No Do you have trouble getting transportation to medical appointments?: No Do you have trouble paying your heating and electricity bill?: No Do you have trouble taking care of your child, family member or friend?: No Do you have trouble with day-to-day activities such as bathing, preparing meals, shopping, managing finances, etc.?: No Are you currently unemployed and looking for a job?: No Are you interested in more education?: I choose not to answer this question Please select the resources that you would like help with: None Currently or been in a relationship where the following occur: I choose not to answer THRIVE Score: 0 AUDIT C Alcohol Use Questionnaire (AUDIT-C) 1. How often do you have a drink containing alcohol?: Never Total Score: 0 AMANDA-7 AMB Questionnaire AMANDA-7 Date AMANDA - 7 assessed: 04/29/24 Feeling nervous, anxious, or on edge: 1 = Several days Source: Developed by Drs. Yoshi Nur, Cristine Jules, Leno Gómez and colleagues, with an educational vidhya from [employer]. Review of Systems Const Denies chills, Denies fatigue, Denies headache(s) and Denies weight loss Eyes Denies change in vision, Denies diplopia and Denies eye pain ENT Denies vertigo, Denies dizziness, Denies headache(s) and Denies nasal discharge Card Denies chest pain, Denies rapid heart rate and Denies dyspnea on exertion Resp Denies chest congestion, Denies cough, Denies pain with cough and Denies dyspnea on exertion GI Denies abdominal pain, Denies hematochezia and Denies change in bowel habits Musc Denies myalgias, Denies arthralgias and Denies joint swelling Skin/Breast Denies lesions and Denies unusual bruising Neuro Denies vertigo, Denies dizziness, Denies headache(s) and Denies focal weakness Endo Denies fatigue Physical exam (Primary Care) Vital Signs: Last Vital Signs Pulse 66 06/24/24 12:56 BP 138/90 H 06/24/24 12:56 Pulse Ox 99 06/24/24 12:56 Oxygen Delivery Method Room Air 06/24/24 12:56 BMI result Body Mass Index 28.3 Tobacco/Smoking Status: Tobacco use Status Tobacco use date assessed 06/28/23 06/24/24 13:01 Patient Tobacco Use Status Never used Tobacco 06/24/24 13:01 Tobacco use type Cigarette 06/24/24 13:01 e-Cigarette/Vaping Use Never Used 06/24/24 13:01 PHQ-9: PHQ-9 Score PHQ-9: Total score 13 06/24/24 13:01 Thrive Assessment: Date of Thrive Assessment Date Thrive assessed 06/24/24 06/24/24 13:01 Currently or been in a relationship where the following occur: I choose not to answer Const General: cooperative, healthy appearing and no acute distress Orientation/consciousness: oriented to person, oriented to place and oriented to time HENMT Head: Yes normal to inspection, Yes normocephalic and Yes atraumatic Mouth: Normal oral and palatal mucosa present and tongue normal Throat: Yes posterior oropharynx normal and Yes uvula midline Eyes General: appearance normal, both eyes and all related structures Neck Neck: Yes normal visual inspection, Yes full ROM and Yes no lymphadenopathy Thyroid: Thyroid normal Carotids: normal carotid upstroke Chest Chest palpation & inspection: normal inspection of the chest Resp Effort & Inspection: normal respiratory effort and able to speak in complete sentences Auscultation: clear to auscultation bilaterally Cardio Jugular venous distension: no JVD Palpation: normal PMI Rate: regular rate Rhythm: regular rhythm Heart sounds: S1 normal heart sound present and S2 normal heart sound present GI Inspection: Yes normal to inspection Palpation (GI): Soft to palpation and No hepatosplenomegaly present Auscultation: normal bowel sounds General: Yes no CVA tenderness Back/Spine/Pelvis Back: no CVA tenderness Skin General skin exam: no rashes or lesions noted Neuro General: oriented to person, oriented to place and oriented to time Extrem General: Yes normal to inspection and Yes full ROM Assessment and Plan Assessment & Plan (1) Physical exam: Code(s): Z00.00 - Encounter for general adult medical examination without abnormal findings Plan: stable; do labs (2) Hyperlipidemia: Code(s): E78.5 - Hyperlipidemia, unspecified Plan: stable; same rx (3) Hypothyroidism: Code(s): E03.9 - Hypothyroidism, unspecified Plan: stable; same rx Orders: Orders Lipid Panel Today Z13.220 - Encounter for screening for lipoid disorders Complete Blood Count Auto Diff Today Z13.0 - Encounter for screening for diseases of the blood and blood-forming organs and certain disorders involving the immune mechanism Thyroid Stimulating Hormone Today Z13.29 - Encounter for screening for other suspected endocrine disorder Comprehensive [place]. Panel Fast Today Z13.9 - Encounter for screening, unspecified XR ankle LT 2V Today M25.579 - Pain in unspecified ankle and joints of unspecified foot Referrals Orthopedics Referral M25.572 - Pain in left ankle and joints of left foot Gastroenterology Referral Z12.11 - Encounter for screening for malignant neoplasm of colon Coding Level of Care Code Est Pt Prev Care >65y(03810) Diagnoses Physical exam Z00.00 Hyperlipidemia E78.5 Hypothyroidism E03.9
[2024-06-24 12:56] VITALS: BP 138/90; PULSE 66; O2SAT 99; BMI 28.3
== END 2024-06-24 15:31 | disposition home or self-care (01) ==
PROVIDERS: PCP Internal Medicine; Visit Provider Internal Medicine
DX: Z00.00 Encounter for general adult medical examination without abnormal findings (principal); E78.5 Hyperlipidemia, unspecified; E03.9 Hypothyroidism, unspecified
CPT/HCPCS: 99397

== ENCOUNTER 2024-06-26 10:50 | Outpatient (REF) | payer OTHER, SELFPAY ==
--- NOTE | ~2024-06-26 | MM_ITS ---
EXAMINATION: MM SCREENING DIGITAL BREAST TOMOSYNTHESIS, BILATERAL CLINICAL INFORMATION: Screening. Asymptomatic. COMPARISON: Mammography: Comparison is made with available priors TECHNIQUE: Digital breast mammography with tomosynthesis is performed in both the craniocaudal and mediolateral oblique views along with computer-aided detection (CAD). FINDINGS: There are scattered areas of fibroglandular density (ACR BI-RADS breast composition Category b). There are no significant masses, abnormal calcifications, or other abnormalities. MM/MM tomosynthesis screening BI IMPRESSION: No mammographic evidence of malignancy. ASSESSMENT: BI-RADS BI-RADS 1 - Negative RECOMMENDATION: Routine annual mammography screening. 1 year F/U This examination should not preclude the clinical evaluation of a suspicious palpable abnormality. This patient's information was entered into a reminder system with a target due date for their next mammogram. Electronically signed by: Danyell Middleton DO 07/09/2024 07:47 PM EDT
== END 2024-06-26 10:51 | disposition home or self-care (01) ==
LOC: HO.MAMMO 10:50
PROVIDERS: PCP Internal Medicine; Visit Provider Internal Medicine
DX: Z12.31 Encounter for screening mammogram for malignant neoplasm of breast (principal)
CPT/HCPCS: 77063; 77067

== ENCOUNTER → 2024-06-26 11:00 | Outpatient (BNV) | payer OTHER, SELFPAY | PROVIDERS: PCP Internal Medicine; Visit Provider Internal Medicine | DX: Z12.31 Encounter for screening mammogram for malignant neoplasm of breast (principal) | CPT/HCPCS: 77063; 77067 ==

== ENCOUNTER 2025-01-22 14:30 | Outpatient (AMB) | payer MEDICARE, SELFPAY ==
--- NOTE | 2025-01-22 14:33 | MHC.OFFVIS ---
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 She is doing well with no seismograph supervisor concerns. Currently has right shoulder pain due to lifting grocery bags yesterday, has appointment with her primary care soon. Denies any vaginal dryness or irritation. Attempting to eat a healthy diet with calcium and vitamin D and stays active with exercise. Last pap smear; 2020. Last mammogram; 2023. Colonoscopy is UTD. Denies any family history of breast, ovarian or colon cancer. [facility] Medical History Iron deficiency Back pain Neuropathy Diverticulosis Glaucoma Hypothyroidism Surgical History Hx of dilation and curettage H/O colonoscopy H/O colectomy History of Family History Mother No problems noted. Father No problems noted. Social History Household Members: Spouse Housing: House Alcohol intake: never Patient Tobacco Use Status: Never used Tobacco Tobacco use type: Cigarette e-Cigarette/Vaping Use: Never Used Second Hand Smoke Exposure: No service: No Current occupational status: unemployed Gender identity: Female Cognitive needs: No Hearing needs: No Vision needs: Yes (glasses) Female Reproductive History Menstrual Total pregnancies: 2 Full term: 1 Number of Living Children: 1 Date of last pap smear: 01/07/21 (neg pap and hpv) Date of Mammogram: 06/26/24 (Birad 1) Review of Systems Const All systems reviewed & are unremarkable except as noted in HPI and below Reports as per HPI Eyes Reports no additional complaints ENT Reports no additional complaints Card Reports no additional complaints Resp Reports no additional complaints GI Reports as per HPI and Reports no additional complaints Reports as per HPI Musc Reports no additional complaints Skin/Breast Reports as per HPI Neuro Reports no additional complaints Psych Reports no additional complaints Endo Reports no additional complaints Dino/Lymph Reports no additional complaints Aller/Immun Reports no additional complaints Physical Exam Const General: cooperative, healthy appearing, no acute distress, well developed and alert Orientation/consciousness: patient oriented x3 HEENT Head: Yes normal to inspection Eyes General: appearance normal, both eyes and all related structures Neck Neck: Yes normal visual inspection Thyroid: Thyroid normal Chest Chest palpation & inspection: normal inspection of the chest and other (no puckering, dimpling, peau de orange, retraction, discharge, masses) Breast/axilla inspection: normal inspection of the breasts Breast/axilla palpation: normal palpation of the breasts Resp Effort & Inspection: normal respiratory effort GI Inspection: Yes normal to inspection and Yes scar Palpation (GI): Soft to palpation Rectal Exam - Female: deferred General: Yes bladder normal to palpation External Female Exam: normal external appearance and normal appearance of the urethra Speculum Exam - Vagina: normal palpation and vagina atrophic Speculum Exam - Cervix: normal appearance of the cervix and normal palpation Bimanual exam- vagina & uterus: normal bimanual exam, normal palpation, uterine size normal, bladder normal to palpation, normal palpation and non-tender Bimanual Exam- Adnexa, other: no masses Skin General skin exam: no rashes or lesions noted Rashes: no rashes Neuro General: patient oriented x3 Cognition (Neuro): normal cognition Extrem General: Yes normal to inspection Psych Attitude: cooperative Thought process: Normal thought process present Assessment & Plan Assessment & Plan (1) Encounter for annual routine gynecological examination: Code(s): Z01.419 - Encounter for gynecological examination (general) (routine) without abnormal findings Category: Medical Plan Discussed: Current recommendations for pap smears per ASCCP guidelines. Breast awareness, periodic self breast exams and yearly mammogram. Maintain a healthy lifestyle, well balanced diet including Calcium 1,200 mg and Vitamin D 600 IU daily, and routine exercise. Contact the office with any postmenopausal bleeding. Comfort measures for shoulder pain. Patient verbalizes understanding and agrees to the plan of care. She was given opportunity to ask questions and all questions were answered to the best of my ability. RTO in 1 year for annual seismograph supervisor exam. This note is constructed using voice recognition software. While every effort has been made to ensure accuracy, roll mechanic errors may have been included. Medications: Refilled calcium carbonate-vitamin D3 600 mg-10 mcg (400 unit) 1 tab PO BID 90 days 90 tabs 4RF Coding Level of Care Code Est Pt Prev Care >65y(99931) Diagnoses Encounter for annual routine gynecological examination Z01.419
[2025-01-22 14:35] VITALS: BP 124/80; BMI 28.3
--- OUTSIDE RECORDS SUMMARY | 2025-01-22 17:13 | XMS_ITS | Patient Health Record ---
Author Organization [facility] Address [address] [place] [address] Care Team Providers Care Machine Brusher Name Role Phone Bobo Ballesteros MD Primary Care Provider Unavaila Yoshi Rodney [phone] Reason For Referral No Information Encounters Encounter Location Date Provider Diagnosis [facility] [address] [place] [address] 10/30/2024 Yoshi Davies Plan Of Treatment No Information Insurance Providers Payer Name Payer Address Payer Phone Subscriber Number Group Number Insured Name Patient Relationship to Insured Coverage Start Date Coverage End Date MEDICARE OF [place] [address] [place] [address] [id number] OSITO PATEL Self - patient is the insured [facility] [address] [address] [place] [address] PLEASE VERIFY IF PT HAS INS. OSITO PATEL Self - patient is the insured MEDICAID OF [facility] [address] [place] [address] [id number] OSITO PATEL Self - patient is the insured
--- OUTSIDE RECORDS SUMMARY | 2025-01-22 17:13 | XMS_ITS ---
Author Organization [facility] Address [address] [place] [address] Care Team Providers Care Spice Cleaner Name Role Phone Bobo Ballesteros MD Primary Care Provider Yoshi Sparks [phone] REASON FOR VISIT New pt no show Encounters Encounter Location Date Provider Diagnosis [facility] [address] [place] [address] 10/30/2024 Yoshi Davies Plan Of Treatment No Information Progress Notes * OSITO WELCHDOB: (69 yo F)Acc No.[id number]:10/30/2024 Patient:?REBEKAH RODERICK TTE :1955???Age:69 Y???Sex:Female Address:[address] [place] [address] * true * Date:? Generated for Jyoti borjas/Karina/eTransmitting on:?01/22/2025 05:12 PM EDT
--- OUTSIDE RECORDS SUMMARY | 2025-01-22 17:13 | XMS_ITS ---
Author Organization [facility] Address [address] [place] [phone] Care Team Providers Care Clinical Law Professor Name Role Phone Lesli RAY, Bobo Primary Care Provider Bethela Yoshi Rodney [phone] REASON FOR VISIT COLON SCREENING Encounters Encounter Location Date Provider Diagnosis [facility] [address] [place] [phone] 10/30/2024 Yoshi Davies Plan Of Treatment No Information Progress Notes * OSITO WELCHDOB: (69 yo F)Acc No.[id number]:10/30/2024 Progress Notes Patient:?RODERICK WELCH TTE Provider:?Yoshi Davies MD :1955???Age:69 Y???Sex:Female D ate:10/30/2024 Address:[address] [place], [place] [id number] Pcp:Bobo Ballesteros MD Subjective: * Chief Complaints: * ???1. COLON SCREENING. * Medical History:? Objective: * Vitals:? Assessment: Plan: * Treatment: * * The named appointment provid er may or may not be the originator of this progress note, and it is not deemed complete until electronically signed by the appointment provider. Sign off status: Pending * Provider:?Yoshi Davies MD Date:? 025 Generated for Jyoti borjas/Karina/eTransmitting on:?01/22/2025 05:12 PM EDT
== END 2025-01-22 15:11 | disposition home or self-care (01) ==
LOC: HO.HWS 14:30
PROVIDERS: Visit Provider Advanced Practice Midwife
DX: Z01.419 Encounter for gynecological examination (general) (routine) without abnormal findings (principal)
CPT/HCPCS: 99397; 99459

== ENCOUNTER → 2025-01-22 14:30 | Outpatient (BNVA) | payer MEDICARE, SELFPAY | PROVIDERS: Visit Provider Advanced Practice Midwife | DX: Z01.419 Encounter for gynecological examination (general) (routine) without abnormal findings (principal) | CPT/HCPCS: 99397; 99459 ==

== ENCOUNTER → 2025-02-04 11:04 | Outpatient (AMB) | payer MEDICARE, SELFPAY ==
[2025-02-04 11:22] VITALS: BP 136/76; PULSE 64; RESP 20; TEMP 36.9; O2SAT 98; BMI 28.6
--- NOTE | 2025-02-04 11:22 | A.OFFPC_ITS ---
Vital Signs 02/04/25 11:22 Height 5 ft 3 in Weight 161 lb 9.6 oz BMI 28.6 BP 136/76 Blood Pressure Location Lt brachial Position Sitting Respiration 20 Pulse 64 Pulse Source Pulse Oximeter Temp 98.5 F Temp Source Oral Pulse Oximetry (%) 98 Oxygen Delivery Method Room Air Intake Visit Reasons: RAMONA DR Ballesteros Immunochemist Required: No Accompanied by: Self / Same As Patient Allergies Iodinated Contrast Media [CONTRAST, IV] Allergy (Intermediate, Verified 02/04/25 11:48) HIVES SOB iopromide [From Ultravist] Allergy (Mild, Verified 02/04/25 11:48) urticaria aspirin [Aspirin] Adverse Reaction (Mild, Verified 02/04/25 11:48) GI DISTRESS Medication List - Last Reconciled 02/04/25 by LAWANDA Singh atorvastatin 40 mg PO DAILY calcium carbonate-vitamin D3 600 mg-10 mcg (400 unit) 1 tab PO BID 90 days ferrous sulfate (FeroSul) 325 mg PO DAILY levothyroxine 100 mcg PO DAILY Tobacco use date assessed: 02/04/25 Fall risk assessment: No Falls in past year Last assessed Fall Risk: 02/04/25 Dental Screening Dental Screen Date: 02/04/25 Did you have a dental visit in the last 12 months?: No Did you have a dental problem in the last 6 months where you did not have access to dental care?: No Was dental information given to patient?: No HPI RAMONA DR Ballesteros HPI Details The patient is a 69-year-old female presenting with a history of the left ankle sprain, which occurred two years ago, and has been associated with persistent pain and swelling. Initial imaging was inconclusive, though subsequent evaluations led to a diagnosis of sprain Achilles tendon. Despite receiving reassurances, the patient continues to report significant discomfort, especially after extended standing, disrupting daily functions and exercise routines. She used to engage in regular physical activity, which has since been postponed. The patient mitigates symptoms with Tylenol though expresses reluctance towards consistent medication reliance. Current concerns with levothyroxine therapy have induced apprehension, potentially linking muscle discomfort higher in the body during mornings. The patient alludes to prior adverse interpretations about medication effects but remains educated on hyporeactivity due to medication-mounted muscle fatigue or injury. Nail discoloration bindings suggest fungal association, although serious medical therapy concerns exist given potential hepatic consequences. Fluctuations in blood pressure are acknowledged with no consistent symptomatic correlation, paying heed to dietary influences, especially high sodium intake. [facility] Medical History Iron deficiency Back pain Neuropathy Diverticulosis Glaucoma Hypothyroidism Surgical History Hx of dilation and curettage H/O colonoscopy H/O colectomy History of Family History Mother No problems noted. Father No problems noted. Social History Household Members: Spouse Housing: House Alcohol intake: never Patient Tobacco Use Status: Never used Tobacco Tobacco use type: Cigarette e-Cigarette/Vaping Use: Never Used Second Hand Smoke Exposure: No service: No Current occupational status: unemployed Gender identity: Female Cognitive needs: No Hearing needs: No Vision needs: Yes (Reading glasses) Questionnaire Thrive Questionnaire Date Thrive assessed: 02/04/25 I am a: Patient What is your living situation today?: I have a steady place to live Within the past 12 months, did the food you bought not last and you didn't have the money to get more?: Never true Within the past 12 months, did you worry whether your food would run out before you got money to buy more?: Never true Do you have trouble paying for medicines?: No Do you have trouble getting transportation to medical appointments?: No Do you have trouble paying your heating and electricity bill?: No Do you have trouble taking care of your child, family member or friend?: No Do you have trouble with day-to-day activities such as bathing, preparing meals, shopping, managing finances, etc.?: No Are you currently unemployed and looking for a job?: No Are you interested in more education?: No Please select the resources that you would like help with: None Currently or been in a relationship where the following occur: No concerns reported THRIVE Score: 0 AUDIT C Alcohol Use Questionnaire (AUDIT-C) 1. How often do you have a drink containing alcohol?: Never Total Score: 0 Score Reviewed/Action Taken: No AMANDA-7 AMB Questionnaire AMANDA-7 Date AMANDA - 7 assessed: 04/29/24 Source: Developed by Drs. Yoshi Nur, Cristine Jules, Leno Gómez and colleagues, with an educational vidhya from [employer]. Review of Systems Const Details: - Musculoskeletal: Reports left ankle pain, bilateral foot swelling, and right shoulder pain. Denies radiating pain. - Cardiovascular: Reports fluctuating blood pressure. - Endocrine: Reports concerns regarding levothyroxine medication. - Integumentary: Reports toenail discoloration potentially indicative of fungal infection. - Neurological: Denies changes in mental status or new neurological symptoms. - Constitutional: Reports general muscle pain and morning stiffness. - Gastrointestinal: No current gastrointestinal symptoms but history of diverticulitis. - Respiratory: Denies chest pain or persistent dyspnea but reports occasional shortness of breath with exertion. Denies headache(s) Eyes Denies loss of vision ENT Denies vertigo, Denies dizziness, Denies headache(s) and Denies sore throat Card Denies chest pain, Denies leg edema, Denies lightheadedness and Reports dyspnea on exertion (occasional) Resp Denies cough, Denies hemoptysis, Reports dyspnea on exertion (occasional) and De nies wheezing GI Denies abdominal pain, Denies melena, Denies constipation, Denies diarrhea, Denies vomiting and Reports other (hx of diverticulitis) Denies urinary frequency, Denies dysuria and Denies urinary urgency Musc Denies arthralgias, Denies joint swelling, Reports muscle cramps (morning stiffness), Denies numbness, Denies tingling and Reports other (reports great toenail fungal) Neuro Denies Abnormal speech present, Denies behavioral changes, Denies vertigo, Denies dizziness, Denies headache(s), Denies loss of vision, Denies memory loss, Denies numbness and Denies tingling Psych Denies anxiety, Denies behavioral changes, Denies depression, Denies memory loss and Denies panic attacks Dino/Lymph Denies easy bleeding and Denies easy bruising Aller/Immun Denies wheezing Physical exam (Primary Care) Vital Signs: Last Vital Signs Temp 98.5 F 02/04/25 11:22 Pulse 64 02/04/25 11:22 Resp 20 02/04/25 11:22 BP 136/76 02/04/25 11:22 Pulse Ox 98 02/04/25 11:22 Oxygen Delivery Method Room Air 02/04/25 11:22 BMI result Body Mass Index 28.6 Tobacco/Smoking Status: Tobacco use Status Tobacco use date assessed 02/04/25 02/04/25 11:39 Patient Tobacco Use Status Never used Tobacco 02/04/25 11:22 Tobacco use type Cigarette 02/04/25 11:22 e-Cigarette/Vaping Use Never Used 02/04/25 11:22 Thrive Assessment: Date of Thrive Assessment Date Thrive assessed 02/04/25 02/04/25 11:22 Currently or been in a relationship where the following occur: No concerns reported Const General: healthy appearing, no acute distress, alert and awake Nutritional Appearance: well nourished Orientation/consciousness: oriented to person, oriented to place and oriented to time HENMT Ears: TM's normal bilaterally General nose exam: Normal nasal mucous membranes and turbinates present Eyes Conjunctivae: conjunctivae normal Sclerae: sclerae normal Pupils: Equal, round and reactive pupils present Neck Neck: Yes no lymphadenopathy and Yes no JVD Thyroid: Thyroid normal Carotids: no bruits Resp Effort & Inspection: normal respiratory effort and not tachypneic Auscultation: no crackles, no rales, no rhonchi and no wheezes Cardio Rate: regular rate Rhythm: regular rhythm Heart sounds: no murmurs and normal S1 and S2 GI Palpation (GI): Soft to palpation, nontender, no hepatomegaly and no splenomegaly Auscultation: normal bowel sounds Skin General skin exam: no rashes or lesions noted and dry skin Nails: discolored (bilateral great toenails) Neuro General: oriented to person, oriented to place and oriented to time Cranial nerves: Yes Equal, round and reactive pupils present Speech: No Abnormal speech present Gait exam (Neuro): Normal gait present Motor exam (neuro): no tremor noted Extrem Right upper extremity: full ROM Left upper extremity: full ROM Right lower extremity: full ROM; no edema Left lower extremity: full ROM; no edema Psych Mental Status: mental status grossly normal Speech and movement: Normal speech and movement present Affect: normal affect Attitude: cooperative Thought process: Normal thought process present Coding Level of Care Code Est Pt Level 4 (24515) Diagnoses Dyspnea on exertion R06.09 Onychomycosis B35.1 Hyperlipidemia, unspecified hyperlipidemia type E78.5 Hyperlipidemia type: unspecified Hypothyroidism, unspecified type E03.9 Hypothyroidism type: unspecified Diverticulosis K57.90 Time Spent (min) 39 Assessment & Plan Assessment & Plan (1) Dyspnea on exertion: Code(s): R06.09 - Other forms of dyspnea Category: Medical (2) Onychomycosis: Code(s): B35.1 - Tinea unguium Category: Medical (3) Hyperlipidemia: Code(s): E78.5 - Hyperlipidemia, unspecified Category: Medical Qualifiers: Hyperlipidemia type: unspecified Qualified Code(s): E78.5 - Hyperlipidemia, unspecified (4) Hypothyroidism: Code(s): E03.9 - Hypothyroidism, unspecified Category: Medical Qualifiers: Hypothyroidism type: unspecified Qualified Code(s): E03.9 - Hypothyroidism, unspecified (5) Diverticulosis: Comment: diverticulosis / diverticulitis-maintain high fiber diet Code(s): K57.90 - Diverticulosis of intestine, part unspecified, without perforation or abscess without bleeding Category: Medical Plan For ongoing symptoms of the left ankle sprain, compression stockings were advised to mitigate swelling. Diet modification targeting reduced sodium was counselled to address variable blood pressure. Levothyroxine continuation was advised with reassurance about related side effects, and magnesium supplementation suggested for muscle pain relief. I provided a referral to podiatry for toenail discoloration and overlapping toe discomfort evaluation, reserving surgery as a final option. Laboratory testing will be performed to monitor thyroid function, lipid profile, and overall health. Follow-up is planned in three months to assess treatment outcomes and make necessary adjustments. Patient was informed and verbally consented to the use of an ambient scribe for clinic note documentation during this visit. Orders: Orders Complete Blood Count Auto Diff 02/04/25 E03.9 - Hypothyroidism, unspecified, E78.5 - Hyperlipidemia, unspecified, Z00.00 - Encounter for general adult medical examination without abnormal findings TSH reflex Free T4 02/04/25 E03.9 - Hypothyroidism, unspecified, E78.5 - Hyperlipidemia, unspecified, Z00.00 - Encounter for general adult medical examination without abnormal findings UA CC w/rflx Micro + Cult 02/04/25 E03.9 - Hypothyroidism, unspecified, E78.5 - Hyperlipidemia, unspecified, Z00.00 - Encounter for general adult medical examination without abnormal findings IRON PROFILE 02/04/25 E03.9 - Hypothyroidism, unspecified, E78.5 - Hyperlipidemia, unspecified, Z00.00 - Encounter for general adult medical examination without abnormal findings Comprehensive [place]. Panel Fast 02/04/25 E03.9 - Hypothyroidism, unspecified, E78.5 - Hyperlipidemia, unspecified, Z00.00 - Encounter for general adult medical examination without abnormal findings Glucose Fasting 02/04/25 E03.9 - Hypothyroidism, unspecified, E78.5 - Hyperlipidemia, unspecified, Z00.00 - Encounter for general adult medical examination without abnormal findings Vitamin D 25-OH Total 02/04/25 E03.9 - Hypothyroidism, unspecified, E78.5 - Hyperlipidemia, unspecified, Z00.00 - Encounter for general adult medical examination without abnormal findings Free T4 (Free Thyroxine) 02/04/25 E03.9 - Hypothyroidism, unspecified, E78.5 - Hyperlipidemia, unspecified, Z00.00 - Encounter for general adult medical examination without abnormal findings Lipid Panel 02/04/25 E03.9 - Hypothyroidism, unspecified, E78.5 - Hyperlipidemia, unspecified, Z00.00 - Encounter for general adult medical examination without abnormal findings B Type Natriuretic Peptide 02/04/25 M79.89 - Other specified soft tissue disorders, R06.09 - Other forms of dyspnea Referrals Podiatry Referral B35.1 - Tinea unguium Patient Instructions: - Wear compression stockings as recommended to help reduce foot swelling. - Reduce salt intake to help manage blood pressure. - Take magnesium supplements at night for muscle relaxation. - Follow the referral for dynamo repairer evaluation for nail and toe concerns. - Schedule lab tests for thyroid, cholesterol, and general health check-up. - Monitor blood pressure regularly. - Return for a follow-up appointment in three months, or sooner if symptoms worsen. - Contact us if you have any new or concerning symptoms.
--- OUTSIDE RECORDS SUMMARY | 2025-02-04 13:22 | XMS_ITS | Patient Health Record ---
Author Organization [facility] Address [address] [place] [address] Care Team Providers Care Billing Spec Name Role Phone Bobo Ballesteros MD Primary Care Provider Unavaila Yoshi Rodney [phone] Reason For Referral No Information Encounters Encounter Location Date Provider Diagnosis [facility] [address] [place] [address] 10/30/2024 Yoshi Davies Plan Of Treatment No Information Insurance Providers Payer Name Payer Address Payer Phone Subscriber Number Group Number Insured Name Patient Relationship to Insured Coverage Start Date Coverage End Date MEDICARE OF [place] [address] [place] [id number] OSITO PATEL Self - patient is the insured [facility] [address] [address] [place] [address] PLEASE VERIFY IF PT HAS INS. OSITO PATEL Self - patient is the insured MEDICAID OF [facility] [address] [place] [address] [id number] OSITO PATEL Self - patient is the insured
--- OUTSIDE RECORDS SUMMARY | 2025-02-04 13:22 | XMS_ITS ---
Author Organization [facility] Address [address] [place] [phone] Care Team Providers Care Forestry Crew Chief Name Role Phone Bobo Ballesteros MD Primary Care Provider Yoshi Sparks [phone] REASON FOR VISIT New pt no show Encounters Encounter Location Date Provider Diagnosis [facility] [address] [place] [address] 10/30/2024 Yoshi Davies Plan Of Treatment No Information Progress Notes * OSITO WELCHDOB: (69 yo F)Acc No.[id number]:10/30/2024 Patient:?REBEKAH RODERICK TTE :1955???Age:69 Y???Sex:Female Address:[address] [place] [id number] * true * Date:? Generated for Jyoti borjas/Karina/eTransmitting on:?02/04/2025 01:22 PM EDT
--- OUTSIDE RECORDS SUMMARY | 2025-02-04 13:22 | XMS_ITS ---
Author Organization [facility] Address [address] [place] [address] Care Team Providers Care Mail Technician Name Role Phone Lesli RAY, Bobo Primary Care Provider Bethela Yoshi Rodney [phone] REASON FOR VISIT COLON SCREENING Encounters Encounter Location Date Provider Diagnosis [facility] [address] [place] [phone] 10/30/2024 Yoshi Davies Plan Of Treatment No Information Progress Notes * OSITO WELCHDOB: (69 yo F)Acc No.[id number]:10/30/2024 Progress Notes Patient:?RODERICK WELCH TTE Provider:?Yoshi Davies MD :1955???Age:69 Y???Sex:Female D ate:10/30/2024 Address:[address] [place], [place] [id number] Pcp:Bobo Ballesteros MD Subjective: * Chief Complaints: [...] Davies MD Date:? 025 Generated for Jyoti borjas/Delmag/eTransmitting on:?02/04/2025 01:22 PM EDT
== END ==
LOC: HO.HMCH 11:05
DX: R06.09 Other forms of dyspnea (principal); B35.1 Tinea unguium; E78.5 Hyperlipidemia, unspecified; E03.9 Hypothyroidism, unspecified; K57.90 Diverticulosis of intestine, part unspecified, without perforation or abscess without bleeding

== ENCOUNTER → 2025-02-04 11:04 | Outpatient (BNVA) | payer MEDICARE, SELFPAY | DX: R06.09 Other forms of dyspnea (principal); B35.1 Tinea unguium; E78.5 Hyperlipidemia, unspecified; E03.9 Hypothyroidism, unspecified; K57.90 Diverticulosis of intestine, part unspecified, without perforation or abscess without bleeding | CPT/HCPCS: 99212 ==

== ENCOUNTER 2025-05-01 10:05 | Outpatient (REF) | payer MEDICARE, SELFPAY ==
--- OUTSIDE RECORDS SUMMARY | 2024-10-30 06:00 | XMS_ITS ---
Author Organization [facility] Address [address] [place] [address] Care Team Providers Care Digital Marketing Executive Name Role Phone Lesli RAY, Bobo Primary Care Provider Yoshi Sparks [phone] REASON FOR VISIT COLON SCREENING Encounters Encounter Location Date Provider Diagnosis [facility] [address] [place] [phone] 10/30/2024 Yoshi Davies Plan Of Treatment No Information Progress Notes * OSITO WELCHDOB: (69 yo F)Acc No.[id number]:10/30/2024 Progress Notes Patient: OSITO URIBE Provider: Anthony Davies MD :1955 A ge:69 Y S ex:Female Date:10/30/2024 Address:[address] [place], [place] [id number] Pcp:Bobo Ballesteros MD Subjective: * Chief Complaints: * 1 . COLON SCREENING. * Medical History: Objective: * Vitals: Assessment: Plan: * Treatment: * * The named appointment provid er may or may not be the originator of this progress note, and it is not deemed complete until electronically signed by the appointment provider. Sign off status: Pending * Provider: Anthony Davies MD Date: 0 10/30/2024 Generated for Jyoti borjas/Karina/eTreannaitting on: 0 05/01/2025 10:25 AM EDT
--- OUTSIDE RECORDS SUMMARY | 2025-05-01 10:25 | XMS_ITS | Patient Health Record ---
Author Organization [facility] Address [address] [place] [address] Care Team Providers Care Exotic Dancer Name Role Phone Glenn Ren Primary Care Provider France Guillermo Unavailable [phone] Allergies Allergen (clinical drug ingredient) Drug/Non Drug Allergy documented on EMR Reaction Allergy Type Onset Date Status aspirin Aspirin Unknown Drug Allergy Active Reason For Referral No Information Medications Medication SIG (Take, Route, Frequency, Duration) Notes Start Date End Date Status Ferrous Sulfate 325 (65 Fe) MG 1 tablet Orally Three times a Week Active predniSONE 5 MG 4 tablets once a day for 3 days, 3 tablets once a day for 3 days, 2 tablets once a day for 3 days, 1 tablet once a day for 3 days Orally; Duration: 12 days 04/30/2025 Active Night Splint AFO - L1930 1 wear when at rest; Duration: 30 days Active Atorvastatin Calcium 40 MG 1 tablet Oral ly Once a day Active Levothyroxine Sodium 100 MCG 1 tablet in the morning on an empty stomach Orally Once a day Active Social History Tobacco Use: Social History Observation Description Date Details (start date - stop date) Never Smoker NA - NA Tobacco use other than smoking: Question Answer Notes Are you an other tobacco user? No Tobacco Control (Standard) Question Answer Notes Tobacco use: Nonsmoker AUDIT-C (Standard) Question Answer Notes Did you have a drink containing alcohol in the p ast year? 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 ; Keith's deformity of left heel M92.62 and Short [facility]illes [facility] (acquired), [facility]67.[facility] [address] 02/12/2025 France Lopez [address] [address] 04/24/2025 France Lopez Assessments Encounter Date Diagnosis (ICD Code) Assessment Notes Treatment Notes Treatment Clinical Notes Section Notes 04/30/2025 Achilles tendinitis of left lower extremity (ICD-10 - M76.62) Patient Educated with: HEEL CORD STRETCHES.pdf (HEEL CORD STRETCHES.pdf) Patient Educated with: RICE THERAPY.pdf (RICE THERAPY.pdf) 04/30/2025 Pain of left heel (ICD-10 - M79.672) 04/30/2025 Exostosis of left posterior calcaneus (ICD-10 - M77.32) 04/30/2025 Keith's deformity of left heel (ICD-10 - M92.62) 04/30/2025 Short Achilles tendon (acquired), 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) Plan Of Treatment Pending Test Test Name Order Date X ray : Foot, left 3V 04/30/2025 Next Appt Details Provider Name:France Garcia wes, 06/10/2025 01:30:00 PM, [address] [place] [address], [phone], Insurance Providers Payer Name Payer Address Payer Phone Subscriber Number Group Number Insured Name Patient Relationship to Insured Coverage Start Date Coverage End Date [employer] 65 Medicare Preferred [address] [place] [address] [phone] [id number] Rosalind Gerard Self - patient is the insured Medical (General) History Medical History History ICD Code Anemia Back pain Cholesterol Cataracts Diverticulosis thyroid Measles Surgical History Surgery Date(Month/Year) 06/15/1997 sigmoid 05/2012 cataract surgery 05/15/2024
[2025-05-01 10:26] LABS: MANUAL DIFF FLAG NO
[2025-05-01 11:13] LABS: Hematocrit 37.7 % (37.0-47.0); Hemoglobin 12.0 g/dl (12.0-16.0); Imm Gran Abs Auto 0.01 X10*3/uL (0.00-0.03); Imm Gran Pct Auto 0.2 % (0.0-0.4); Lymphocytes Absolute Auto 2.1 X10*3/uL (1.2-4.9); Mean Corpuscular HGB Conc 31.8 g/dl (31.0-35.0); Mean Corpuscular Hemoglobin 25.3 pg (27.0-33.0); Mean Corpuscular Volume 79.4 fL (80.0-98.0); NRBC Abs Auto 0.000 X10*3/uL (0.0-0.012); NRBC Pct Auto 0.0 /100WBC (0.0-0.2); Platelet Count 158 X10*3/uL (160-400); Red Blood Count 4.75 X10*6/uL (4.20-5.50); White Blood Count 5.4 X10*3/uL (4.8-10.8)
[2025-05-01 11:42] LABS: Appearance Urine Clear; Glucose Urine UA Negative (Negative); PH 5.5 (5.0-9.0); Specific Gravity - Urine 1.010 (1.005-1.025); UMIC TRIGGER UACC YES
[2025-05-01 11:49] LABS: UACC Culture Trigger YES
[2025-05-01 12:03] LABS: B Type Natriuretic Peptide 30 pg/mL (<100)
[2025-05-01 12:26] LABS: Alanine Aminotransferase 27 U/L (0-31); Albumin Level 4.5 g/dL (3.5-5.0); Alkaline Phosphatase 97 U/L (39-117); Anion Gap 13 (12-20); Aspartate Amino Transferase 30 U/L (5-31); Blood Urea Nitrogen 14 mg/dL (9-16); Calcium 9.2 mg/dL (8.4-10.2); Carbon Dioxide 27 mmol/L (22-29); Chloride 107 mmol/L (96-108); Cholesterol 154 mg/dL (<200); Estimated Glomerular Filt Rate > 60; HDL Cholesterol 45 mg/dL (>40); Iron 86 mcg/dL (30-160); Percent Iron Saturation 33 % (15-50); Potassium 4.4 mmol/L (3.3-5.1); Sodium 143 mmol/L (135-145); Total Iron Binding Capacity 262 mcg/dL (228-428); Total Protein 7.1 g/dL (6.5-8.0); Triglycerides 127 mg/dL (<150); Unsaturated Iron Binding 176 ug/dL
[2025-05-01 12:31] LABS: Free T4 (Free Thyroxine) 1.07 ng/dL (0.71-1.85)
== END 2025-05-01 10:06 | disposition home or self-care (01) ==
LOC: HO.LAB 10:05
DX: Z00.00 Encounter for general adult medical examination without abnormal findings (principal); E78.5 Hyperlipidemia, unspecified; E03.9 Hypothyroidism, unspecified; M79.89 Other specified soft tissue disorders; R06.09 Other forms of dyspnea
CPT/HCPCS: 36415; 80053; 80061; 81001; 82306; 83540; 83880; 84439; 84443; 85025; 87086

== ENCOUNTER 2025-05-06 10:23 | Outpatient (AMB) | payer MEDICARE, SELFPAY ==
--- OUTSIDE RECORDS SUMMARY | 2024-10-30 06:00 | XMS_ITS ---
Author Organization [facility] Address [address] [place] [address] Care Team Providers Care Automotive Sales Manager Name Role Phone Lesli RAY, Bobo Primary Care Provider Yoshi Sparks [phone] REASON FOR VISIT COLON SCREENING Encounters Encounter Location Date Provider Diagnosis [facility] [address] [place] [phone] 10/30/2024 Yoshi Davies Plan Of Treatment No Information Progress Notes * OSITO WELCHDOB: (69 yo F)Acc No.[id number]:10/30/2024 Progress Notes Patient: OSITO URIBE Provider: Anthony Davies MD :1955 A ge:69 Y S ex:Female Date:10/30/2024 Address:[address] [place], [place] [id number] Pcp:Bobo Ballesteros MD Subjective: * Chief Complaints: [...] 10/30/2024 Generated for Jyoti borjas/Karina/eTreannaitting on: 0 05/06/2025 11:29 AM EDT
--- NOTE | 2025-05-06 10:29 | A.OFFPC_ITS ---
Vital Signs 05/06/25 10:30 Height 5 ft 3 in Weight 160 lb 8 oz BMI 28.4 BP 142/82 H Blood Pressure Location Lt brachial Position Sitting Pulse 71 Temp 97.4 F Temp Source Oral Pulse Oximetry (%) 98 Oxygen Delivery Method Room Air Intake Visit Reasons: hld/anemia/hypothyroidism Solderer Electronic Required: No Accompanied by: Self / Same As Patient Is last menstrual period known: No Allergies Iodinated Contrast Media (CONTRAST, IV) Allergy (Intermediate, Verified 05/06/25 10:45) HIVES SOB iopromide (From Ultravist) Allergy (Mild, Verified 05/06/25 10:45) urticaria aspirin (Aspirin) Adverse Reaction (Mild, Verified 05/06/25 10:45) GI DISTRESS Medication List - Last Reconciled 05/06/25 by LAWANDA Singh atorvastatin 40 mg PO DAILY calcium carbonate-vitamin D3 600 mg-10 mcg (400 unit) 1 tab PO BID 90 days ferrous sulfate (FeroSul) 325 mg PO DAILY levothyroxine 100 mcg PO DAILY Tobacco use date assessed: 05/06/25 Fall risk assessment: No Falls in past year Last assessed Fall Risk: 05/06/25 Dental Screening Dental Screen Date: 05/06/25 Did you have a dental visit in the last 12 months?: No Did you have a dental problem in the last 6 months where you did not have access to dental care?: No Was dental information given to patient?: Patient has dentist HPI hld/anemia/hypothyroidism HPI Details The patient is a 69-year-old female presenting with hypertension, hld, hypothyroidism and ankle pain. She has a history of hypertension, with recent blood pressure readings of 144/82 mmHg, which has been a concern due to potential cardiovascular risks. She has been advised to monitor her salt intake to manage her blood pressure levels. The patient also reports a history of ankle pain, which was diagnosed as an ankle sprain and bone spur following an x-ray examination. She has been prescribed prednisone for pain management by podiatry and reports some relief, although the pain is not completely resolved. The patient has been using an ankle brace and a boot for support and has been advised to wear comfortable shoes to aid in recovery. The patient has a history of hyperlipidemia, with recent lab results indicating an LDL level of 84 mg/dL, which is within acceptable limits. [facility] Medical History Iron deficiency Back pain Neuropathy Diverticulosis Glaucoma Hypothyroidism Surgical History Hx of dilation and curettage H/O colonoscopy H/O colectomy History of Family History Mother No problems noted. Father No problems noted. Social History Household Members: Spouse Housing: House Alcohol intake: never Patient Tobacco Use Status: Never used Tobacco Tobacco use type: Cigarette e-Cigarette/Vaping Use: Never Used Second Hand Smoke Exposure: No service: No Current occupational status: unemployed Gender identity: Female Cognitive needs: No Hearing needs: No Vision needs: Yes (Reading glasses) Questionnaire Thrive Questionnaire Date Thrive assessed: 05/06/25 AMANDA-7 AMB Questionnaire AMANDA-7 Date AMANDA - 7 assessed: 05/06/25 Source: Developed by Drs. Yoshi Nur, Cristine Jules, Leno Gómez and colleagues, with an educational vidhya from [employer]. Review of Systems Const Denies headache(s) Eyes Denies loss of vision ENT Denies vertigo, Denies dizziness, Denies headache(s) and Denies sore throat Card Denies chest pain, Reports leg edema (on and off primarily left) and Denies lightheadedness Resp Denies cough, Denies hemoptysis and Denies wheezing GI Denies abdominal pain, Denies melena, Denies constipation, Denies diarrhea and Denies vomiting Denies urinary frequency, Denies dysuria and Denies urinary urgency Musc Reports arthralgias (left ankle), Reports joint swelling (left ankle intermittently), Denies numbness and Denies tingling Neuro Denies Abnormal speech present, Denies behavioral changes, Denies vertigo, Denies dizziness, Denies headache(s), Denies loss of vision, Denies memory loss, Denies numbness and Denies tingling Psych Denies anxiety, Denies behavioral changes, Denies depression, Denies memory loss and Denies panic attacks Dino/Lymph Denies easy bleeding and Denies easy bruising Aller/Immun Denies wheezing Physical exam (Primary Care) Vital Signs: Last Vital Signs Temp 97.4 F 05/06/25 10:30 Pulse 71 05/06/25 10:30 BP 142/82 H 05/06/25 10:30 Pulse Ox 98 05/06/25 10:30 Oxygen Delivery Method Room Air 05/06/25 10:30 BMI result Body Mass Index 28.4 Tobacco/Smoking Status: Tobacco use Status Tobacco use date assessed 05/06/25 05/06/25 10:40 Patient Tobacco Use Status Never used Tobacco 05/06/25 10:40 Tobacco use type Cigarette 05/06/25 10:40 e-Cigarette/Vaping Use Never Used 05/06/25 10:40 Thrive Assessment: Date of Thrive Assessment Date Thrive assessed 05/06/25 05/06/25 10:40 Const General: healthy appearing, no acute distress, alert and awake Nutritional Appearance: well nourished Orientation/consciousness: oriented to person, oriented to place and oriented to time HENMT Ears: TM's normal bilaterally General nose exam: Normal nasal mucous membranes and turbinates present Eyes Conjunctivae: conjunctivae normal Sclerae: sclerae normal Pupils: Equal, round and reactive pupils present Neck Neck: Yes no lymphadenopathy and Yes no JVD Thyroid: Thyroid normal Carotids: no bruits Resp Effort & Inspection: normal respiratory effort and not tachypneic Auscultation: no crackles, no rales, no rhonchi and no wheezes Cardio Rate: regular rate Rhythm: regular rhythm Heart sounds: S1 normal heart sound present, S2 normal heart sound present, no murmurs and normal S1 and S2 GI Palpation (GI): Soft to palpation and nontender Auscultation: normal bowel sounds General: Yes no CVA tenderness Back/Spine/Pelvis Back: no CVA tenderness Skin General skin exam: no rashes or lesions noted and dry skin Neuro General: oriented to person, oriented to place and oriented to time Cranial nerves: Yes Equal, round and reactive pupils present Speech: No Abnormal speech present Gait exam (Neuro): Normal gait present Motor exam (neuro): no tremor noted Extrem Right upper extremity: full ROM Left upper extremity: full ROM Right lower extremity: full ROM; no edema Left lower extremity: full ROM and edema (on and off, no edema today. Compression stocking in place) Details: non-pitting and 2+ Psych Mental Status: mental status grossly normal Speech and movement: Normal speech and movement present Affect: normal affect Attitude: cooperative Thought process: Normal thought process present Results Reviewed Results Reviewed: Laboratory Tests 05/01/25 05/01/25 10:18 10:24 WBC 5.4 RBC 4.75 Hgb 12.0 Hct 37.7 MCV 79.4 L MCH 25.3 L MCHC 31.8 RDW 15.4 Plt Count 158 L MPV 11.3 Sodium 143 Potassium 4.4 Chloride 107 Carbon Dioxide 27 Anion Gap 13 BUN 14 Creatinine 0.77 Estimated GFR > 60 Fasting Glucose 81 Calcium 9.2 Iron 86 TIBC 262 % Saturation 33 Unsat Iron Binding 176 Total Bilirubin 0.9 AST 30 ALT 27 Alkaline Phosphatase 97 B-Natriuretic Peptide 30 Total Protein 7.1 Albumin 4.5 Triglycerides 127 Cholesterol 154 LDL Cholesterol, Calc 84 HDL Cholesterol 45 25-OH Vitamin D Total 34.8 TSH 0.35 Free T4 1.07 Urine Color Yellow Urine Appearance Clear Urine pH 5.5 Ur Specific [place] 1.010 Urine Protein Negative Urine Glucose (UA) Negative Urine Ketones Negative Urine Blood Negative Urine Nitrite Negative Ur Leukocyte Esterase Small (1+) H Urine RBC 0-2 Urine WBC 6-10 H Ur Squamous Epith Cells 3-5 Urine Bacteria None Seen Hyaline Casts 0-2 Coding Level of Care Code Est Pt Level 4 (58524) Diagnoses Hyperlipidemia, unspecified hyperlipidemia type E78.5 Hyperlipidemia type: unspecified Hypothyroidism, unspecified type E03.9 Hypothyroidism type: unspecified Vitamin D deficiency E55.9 Hypertension, unspecified type I10 Hypertension type: unspecified Sprain of left ankle, unspecified ligament, subsequent encounter S93.402D Encounter type: subsequent encounter Involved ligament of ankle: unspecified ligament Time Spent (min) 39 Assessment & Plan Assessment & Plan (1) Hyperlipidemia: Code(s): E78.5 - Hyperlipidemia, unspecified Category: Medical Qualifiers: Hyperlipidemia type: unspecified Qualified Code(s): E78.5 - Hyperlipidemia, unspecified (2) Hypothyroidism: Code(s): E03.9 - Hypothyroidism, unspecified Category: Medical Qualifiers: Hypothyroidism type: unspecified Qualified Code(s): E03.9 - Hypothyroidism, unspecified (3) Vitamin D deficiency: Code(s): E55.9 - Vitamin D deficiency, unspecified Category: Medical (4) HTN (hypertension): Code(s): I10 - Essential (primary) hypertension Category: Medical Qualifiers: Hypertension type: unspecified Qualified Code(s): I10 - Essential (primary) hypertension (5) Left ankle sprain: Code(s): S93.402A - Sprain of unspecified ligament of left ankle, initial encounter Category: Medical Qualifiers: Encounter type: subsequent encounter Involved ligament of ankle: unspecified ligament Qualified Code(s): S93.402D - Sprain of unspecified ligament of left ankle, subsequent encounter Plan The patient will continue to monitor her blood pressure and reduce salt intake to manage hypertension. She is advised to continue wearing the ankle brace and boot for support and to use comfortable footwear to aid in recovery from the ankle sprain and bone spur. Reinforced low cholesterol diet and continue atorvastatin 40 mg daily. Continue vitamin D supplement and iron supplement. H&H within normal limits on current labs. Continue levothyroxine 100mcg daily. Follow-up in six months is recommended to reassess blood pressure and lipid levels. Patient was informed and verbally consented to the use of an ambient scribe for clinic note documentation during this visit. Orders: Orders Complete Blood Count Auto Diff 6 Months F32.A - Depression, unspecified, R06.09 - Other forms of dyspnea, E78.5 - Hyperlipidemia, unspecified, E03.9 - Hypothyroidism, unspecified, B35.1 - Tinea unguium, M79.89 - Other specified soft tissue disorders, E55.9 - Vitamin D deficiency, unspecified Comprehensive Husser. Panel Fast 6 Months F32.A - Depression, unspecified, R06.09 - Other forms of dyspnea, E78.5 - Hyperlipidemia, unspecified, E03.9 - Hypothyroidism, unspecified, B35.1 - Tinea unguium, M79.89 - Other specified soft tissue disorders, E55.9 - Vitamin D deficiency, unspecified Lipid Panel 6 Months F32.A - Depression, unspecified, R06.09 - Other forms of dyspnea, E78.5 - Hyperlipidemia, unspecified, E03.9 - Hypothyroidism, unspecified, B35.1 - Tinea unguium, M79.89 - Other specified soft tissue disorders, E55.9 - Vitamin D deficiency, unspecified TSH reflex Free T4 6 Months F32.A - Depression, unspecified, R06.09 - Other forms of dyspnea, E78.5 - Hyperlipidemia, unspecified, E03.9 - Hypothyroidism, unspecified, B35.1 - Tinea unguium, M79.89 - Other specified soft tissue disorders, E55.9 - Vitamin D deficiency, unspecified Vitamin D 25-OH Total 6 Months F32.A - Depression, unspecified, R06.09 - Other forms of dyspnea, E78.5 - Hyperlipidemia, unspecified, E03.9 - Hypothyroidism, unspecified, B35.1 - Tinea unguium, M79.89 - Other specified soft tissue disorders, E55.9 - Vitamin D deficiency, unspecified Free T4 (Free Thyroxine) 6 Months F32.A - Depression, unspecified, R06.09 - Other forms of dyspnea, E78.5 - Hyperlipidemia, unspecified, E03.9 - Hypothyroidism, unspecified, B35.1 - Tinea unguium, M79.89 - Other specified soft tissue disorders, E55.9 - Vitamin D deficiency, unspecified UA CC w/rflx Micro + Cult 6 Months F32.A - Depression, unspecified, R06.09 - Other forms of dyspnea, E78.5 - Hyperlipidemia, unspecified, E03.9 - Hypothyroidism, unspecified, B35.1 - Tinea unguium, M79.89 - Other specified soft tissue disorders, E55.9 - Vitamin D deficiency, unspecified
[2025-05-06 10:30] VITALS: BP 142/82; PULSE 71; TEMP 36.3; O2SAT 98; BMI 28.4
--- OUTSIDE RECORDS SUMMARY | 2025-05-06 11:30 | XMS_ITS | Patient Health Record ---
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 and Short Achilles tendon (acquired), left ankle M67.02 [facility] [address] 02/12/2025 France Lopez [address] [address] 04/24/2025 France Lopez Assessments Encounter Date Diagnosis [...] Provider Name:France Garcia wes, 06/10/2025 01:30:00 PM, [address] [place] [address], [id number], Insurance Providers Payer Name Payer Address Payer Phone Subscriber Number Group Number Insured Name Patient Relationship to Insured Coverage Start Date Coverage End Date [employer] 65 Medicare Preferred [address] [place] [address] [phone] [id number] Rosalind Gerard Self - patient is the insured Medical (General) History Medical History History ICD Code Anemia Back pain Cholesterol Cataracts Diverticulosis thyroid Measles Surgical History Surgery Date(Month/Year) 06/15/1997 sigmoid 05/2012 cataract surgery 05/15/2024
== END 2025-05-06 11:15 | disposition home or self-care (01) ==
LOC: HO.HMCH 10:24
DX: E78.5 Hyperlipidemia, unspecified (principal); E03.9 Hypothyroidism, unspecified; E55.9 Vitamin D deficiency, unspecified; I10 Essential (primary) hypertension; S93.402D Sprain of unspecified ligament of left ankle, subsequent encounter

== ENCOUNTER → 2025-05-06 10:23 | Outpatient (BNVA) | payer MEDICARE, SELFPAY | DX: I10 Essential (primary) hypertension (principal); E03.9 Hypothyroidism, unspecified; E78.5 Hyperlipidemia, unspecified; E55.9 Vitamin D deficiency, unspecified; F32.A Depression, unspecified; S93.402D Sprain of unspecified ligament of left ankle, subsequent encounter; X58.XXXD Exposure to other specified factors, subsequent encounter | CPT/HCPCS: 99212 ==

== ENCOUNTER 2025-06-26 13:54 | Outpatient (AMB) | payer MEDICARE, SELFPAY ==
--- OUTSIDE RECORDS SUMMARY | 2024-10-30 06:00 | XMS_ITS ---
Author Organization [facility] Address [address] [place] [address] Care Team Providers Care Blue Line Operator Name Role Phone Lesli RAY, Bobo Primary Care Provider Yoshi Sparks [phone] REASON FOR VISIT COLON SCREENING Encounters Encounter Location Date Provider Diagnosis [facility] [address] [place] [address] 10/30/2024 Yoshi Davies Plan Of Treatment No Information Progress Notes * OSITO WELCHDOB: (69 yo F)Acc No.[id number]:10/30/2024 Progress Notes Patient: OSITO URIBE Provider: Anthony Davies MD :1955 A ge:69 Y S ex:Female Date:10/30/2024 Address:[address] [place], [place] [id number] Pcp:Bobo Ballesteros MD Subjective: * Chief Complaints: [...] 10/30/2024 Generated for Jyoti borjas/Karina/eTginnasmitting on: 0 06/26/2025 04:51 PM EDT
--- NOTE | 2025-06-26 13:57 | A.OFFPC_ITS ---
Vital Signs 06/26/25 13:58 Height 5 ft 3 in Weight 160 lb 2 oz BMI 28.4 BP 120/72 Blood Pressure Location Lt brachial Position Sitting Pulse 67 Pulse Source Pulse Oximeter Temp 96.6 F L Temp Source Temporal Artery Scan Pulse Oximetry (%) 98 Oxygen Delivery Method Room Air Intake Visit Reasons: annual exam Shanker Out Required: No Accompanied by: Self / Same As Patient Allergies Iodinated Contrast Media (CONTRAST, IV) Allergy (Intermediate, Verified 06/26/25 14:08) HIVES SOB iopromide (From Ultravist) Allergy (Mild, Verified 06/26/25 14:08) urticaria aspirin (Aspirin) Adverse Reaction (Mild, Verified 06/26/25 14:08) GI DISTRESS Medication List - Last Reconciled 06/26/25 by LAWANDA Singh atorvastatin 40 mg PO DAILY calcium carbonate-vitamin D3 600 mg-10 mcg (400 unit) 1 tab PO BID 90 days ferrous sulfate (FeroSul) 325 mg PO DAILY levothyroxine 100 mcg PO DAILY Tobacco use date assessed: 06/26/25 Fall risk assessment: No Falls in past year Last assessed Fall Risk: 06/26/25 Dental Screening Dental Screen Date: 06/26/25 Did you have a dental visit in the last 12 months?: No Did you have a dental problem in the last 6 months where you did not have access to dental care?: No Was dental information given to patient?: No HPI annual exam HPI Details Patient is presenting for annual physical Dentist: 2022-still trying to find a dentist that takes her insurance Eye: up to date Snellen: Right: Left: Corrected vision: yes, only for reading STI screening: Colonoscopy: will put in referral- mammogram: up to date Pap Smer: pap smear PHQ-9: Flu: up to date COVID: x4 Tdap:not sure, she will check with at [facility] to see if she had this already Diet:regular Exercise: she is not able to go for walks anymore The patient reported developing symptoms of an upper respiratory tract infection after contact with a neighbor who was unwell. She experienced coughing and a runny nose, which persisted despite the use of multiple lmpv-jhn-[id number] medications, including Tylenol and cough syrups. The symptoms have since resolved, and she is feeling better. The patient has a history of cataract surgery performed last year, which has improved her vision, although she still requires reading glasses. She underwent an eye examination last year, which is up to date. The patient was diagnosed with a bone spur in the heel, which causes pain when standing for prolonged periods. She has been advised to wear comfortable shoes and consider conservative management options. Preventative care measures discussed include the need for a colonoscopy, which she acknowledges is overdue due to a previous issue. She has completed her Pap smear and mammogram screenings this year and received the flu and pneumonia vaccines. [facility] Medical History Iron deficiency Back pain Neuropathy Diverticulosis Glaucoma Hypothyroidism Surgical History Hx of dilation and curettage H/O colonoscopy H/O colectomy History of Family History Mother No problems noted. Father No problems noted. Social History Household Members: Spouse Housing: House Alcohol intake: never Patient Tobacco Use Status: Never used Tobacco Tobacco use type: Cigarette e-Cigarette/Vaping Use: Never Used Second Hand Smoke Exposure: No service: No Current occupational status: unemployed Gender identity: Female Cognitive needs: No Hearing needs: No Vision needs: Yes (Reading glasses) Questionnaire PHQ-9 Over the last 2 weeks, how often have you been bothered by any of the following problems? 1. Little interest or pleasure in doing things: more than half the days 2. Feeling down, depressed, or hopeless: several days 3. Trouble falling or staying asleep, or sleeping too much: not at all 4. Feeling tired or having little energy: nearly every day 5. Poor appetite or overeating: several days 6. Feeling bad about yourself - or that you are a failure or have let yourself or your family down: not at all 7. Trouble concentrating on things, such as reading the newspaper or watching television: nearly every day 8. Moving or speaking so slowly that other people could have noticed. Or the opposite - being so fidgety or restless that you have been moving around a lot more than usual: nearly every day 9. Thoughts that you would be better off or of hurting yourself in some way: not at all Total score: 13 88036 - PHQ-9 Billing: Yes Source: Developed by Drs. Yoshi Nur, Cristine Jules, Leno Gómez and colleagues, with an educational vidhya from [employer]. Thrive Questionnaire Date Thrive assessed: 06/26/25 I am a: Patient What is your living situation today?: I have a steady place to live Within the past 12 months, did the food you bought not last and you didn't have the money to get more?: Never true Within the past 12 months, did you worry whether your food would run out before you got money to buy more?: Never true Do you have trouble paying for medicines?: No Do you have trouble getting transportation to medical appointments?: No Do you have trouble paying your heating and electricity bill?: No Do you have trouble taking care of your child, family member or friend?: No Do you have trouble with day-to-day activities such as bathing, preparing meals, shopping, managing finances, etc.?: No Are you currently unemployed and looking for a job?: No Are you interested in more education?: No Please select the resources that you would like help with: None Currently or been in a relationship where the following occur: No concerns reported THRIVE Score: 0 AUDIT C Alcohol Use Questionnaire (AUDIT-C) 1. How often do you have a drink containing alcohol?: Never Total Score: 0 Score Reviewed/Action Taken: No AMANDA-7 AMB Questionnaire AMANDA-7 Date AMANDA - 7 assessed: 06/26/25 Feeling nervous, anxious, or on edge: 1 = Several days Source: Developed by Drs. Yoshi Nur, Cristine Jules, Leno Gómez and colleagues, with an educational vidhya from [employer]. Review of Systems Const Denies headache(s) Eyes Denies loss of vision ENT Denies vertigo, Denies dizziness, Denies headache(s) and Denies sore throat Card Denies chest pain, Denies leg edema and Denies lightheadedness Resp Denies cough, Denies hemoptysis and Denies wheezing GI Denies abdominal pain, Denies melena, Denies constipation, Denies diarrhea and Denies vomiting Denies urinary frequency, Denies dysuria and Denies urinary urgency Musc Reports arthralgias (Left ankle), Denies joint swelling, Denies numbness, Denies tingling and Reports other (Left heel pain on and off) Neuro Denies Abnormal speech present, Denies behavioral changes, Denies vertigo, Denies dizziness, Denies headache(s), Denies loss of vision, Denies memory loss, Denies numbness and Denies tingling Psych Denies anxiety, Denies behavioral changes, Denies depression, Denies memory loss and Denies panic attacks Dino/Lymph Denies easy bleeding and Denies easy bruising Aller/Immun Denies wheezing Physical exam (Primary Care) Vital Signs: Last Vital Signs Temp 96.6 F L 06/26/25 13:58 Pulse 67 06/26/25 13:58 BP 120/72 06/26/25 13:58 Pulse Ox 98 06/26/25 13:58 Oxygen Delivery Method Room Air 06/26/25 13:58 BMI result Body Mass Index 28.4 Tobacco/Smoking Status: Tobacco use Status Tobacco use date assessed 06/26/25 06/26/25 14:05 Patient Tobacco Use Status Never used Tobacco 06/26/25 14:05 Tobacco use type Cigarette 06/26/25 14:05 e-Cigarette/Vaping Use Never Used 06/26/25 14:05 PHQ-9: PHQ-9 Score PHQ-9: Total score 13 06/27/25 23:55 Thrive Assessment: Date of Thrive Assessment Date Thrive assessed 06/26/25 06/26/25 14:05 Currently or been in a relationship where the following occur: No concerns reported Const General: healthy appearing, no acute distress, alert and awake Nutritional Appearance: well nourished Orientation/consciousness: oriented to person, oriented to place and oriented to time HENMT Ears: TM's normal bilaterally General nose exam: Normal nasal mucous membranes and turbinates present Eyes Conjunctivae: conjunctivae normal Sclerae: sclerae normal Pupils: Equal, round and reactive pupils present Neck Neck: Yes no lymphadenopathy and Yes no JVD Thyroid: Thyroid normal Carotids: no bruits Resp Effort & Inspection: normal respiratory effort and not tachypneic Auscultation: no crackles, no rales, no rhonchi and no wheezes Cardio Rate: regular rate Rhythm: regular rhythm Heart sounds: S1 normal heart sound present, S2 normal heart sound present, no murmurs and normal S1 and S2 GI Palpation (GI): Soft to palpation, nontender, no hepatomegaly and no splenomegaly Auscultation: normal bowel sounds General: Yes no CVA tenderness Back/Spine/Pelvis Back: no CVA tenderness Thoracic/Lumbar Spine: thoracic and lumbar spine normal to inspection Skin General skin exam: no rashes or lesions noted and dry skin Neuro General: oriented to person, oriented to place and oriented to time Cranial nerves: Yes CN's II-XII intact bilaterally and Yes Equal, round and reactive pupils present Speech: No Abnormal speech present Gait exam (Neuro): Normal gait present Motor exam (neuro): no tremor noted Deep tendon reflexes (DTR's): Right triceps reflex intensity grade: 2+, Left triceps reflex intensity grade: 2+, Rt Biceps (C5, C6): 2+, Left biceps reflex intensity grade: 2+, Right brachioradialis reflex intensity grade: 2+, Left brachioradialis reflex intensity grade: 2+, Right patellar reflex intensity grade: 2+ and Left patellar reflex intensity grade: 2+ Extrem Right upper extremity: full ROM Left upper extremity: full ROM Right lower extremity: full ROM; no edema Left lower extremity: full ROM, ankle Details: no tenderness and no swelling and foot Details: no edema; no tenderness; no edema Psych Mental Status: mental status grossly normal Speech and movement: Normal speech and movement present Affect: normal affect Attitude: cooperative Thought process: Normal thought process present Coding Level of Care Code Est Pt Prev Care >65y(56759) Diagnoses Physical exam Z00.00 Hyperlipidemia, unspecified hyperlipidemia type E78.5 Hyperlipidemia type: unspecified Hypothyroidism, unspecified type E03.9 Hypothyroidism type: unspecified Vitamin D deficiency E55.9 Hypertension, unspecified type I10 Hypertension type: unspecified Sprain of left ankle, unspecified ligament, subsequent encounter S93.402D Encounter type: subsequent encounter Involved ligament of ankle: unspecified ligament Encounter for screening colonoscopy Z12.11 Bone spur of foot M77.50 Additional Codes PHQ-9 - 68782 - PHQ-9 Billing: Yes ([id number]) Time Spent (min) 37 Assessment & Plan Assessment & Plan (1) Physical exam: Code(s): Z00.00 - Encounter for general adult medical examination without abnormal findings Category: Medical Plan: Preventative guidelines and recent labs reviewed with the patient. Patient is due for her follow up colonoscopy, will refer her back to GI. She is up-to-date on Pap smear and mammogram. She is unsure of when last she had a tetanus vaccine. The patient wants to check with [facility] before proceeding. (2) Hyperlipidemia: Code(s): E78.5 - Hyperlipidemia, unspecified Category: Medical Qualifiers: Hyperlipidemia type: unspecified Qualified Code(s): E78.5 - Hyperlipidemia, unspecified Plan: Triglycerides 127, total cholesterol 154, LDL 84, HDL 45 Discussed lifestyle modifications including dietary changes and physical activity Continue atorvastatin 40 mg daily We will continue to monitor (3) Hypothyroidism: Code(s): E03.9 - Hypothyroidism, unspecified Category: Medical Qualifiers: Hypothyroidism type: unspecified Qualified Code(s): E03.9 - Hypothyroidism, unspecified Plan: TSH 0.35, free T4 1.07 Continue levothyroxine 100 mcg daily We will continue to monitor (4) Vitamin D deficiency: Code(s): E55.9 - Vitamin D deficiency, unspecified Category: Medical Plan: Continue vitamin D3 supplement (5) HTN (hypertension): Code(s): I10 - Essential (primary) hypertension Category: Medical Qualifiers: Hypertension type: unspecified Qualified Code(s): I10 - Essential (primary) hypertension Plan: Blood pressure 120/72-systolic goal less than 130 mm Hg Reinforced low-salt diet (6) Left ankle sprain: Code(s): S93.402A - Sprain of unspecified ligament of left ankle, initial encounter Category: Medical Qualifiers: Encounter type: subsequent encounter Involved ligament of ankle: unspecified ligament Qualified Code(s): S93.402D - Sprain of unspecified ligament of left ankle, subsequent encounter Plan: She is advised to continue wearing the ankle brace and boot for support and to use comfortable footwear to aid in recovery from the ankle sprain and bone spur (7) Encounter for screening colonoscopy: Comment: colonoscopy-Dr. Tierney please-pt request specifically Code(s): Z12.11 - Encounter for screening for malignant neoplasm of colon Category: Medical Plan: The patient was referred back to GI. (8) Bone spur of foot: Code(s): M77.50 - Other enthesopathy of unspecified foot and ankle Category: Medical Plan: The patient has a bone spur in the heel causing pain, especially when standing for long periods. Conservative management with comfortable footwear has been recommended. Follow up with Podiatry as scheduled Orders: Referrals Gastroenterology Referral D36.9 - Benign neoplasm, unspecified site
[2025-06-26 13:58] VITALS: BP 120/72; PULSE 67; TEMP 35.9; O2SAT 98; BMI 28.4
--- OUTSIDE RECORDS SUMMARY | 2025-06-26 16:51 | XMS_ITS | Patient Health Record ---
Author Organization [facility] Address [address] [place] [address] Care Team Providers Care Cryptologic Technician Name Role Phone Bobo Ballesteros MD Primary Care Provider Unavaila Yoshi Rodney [phone] Reason For Referral No Information Encounters Encounter Location Date Provider Diagnosis [facility] [address] [place] [address] 10/30/2024 Yoshi Davies Plan Of Treatment No Information Insurance Providers Payer Name Payer Address Payer Phone Subscriber Number Group Number Insured Name Patient Relationship to Insured Coverage Start Date Coverage End Date MEDICARE OF [place] [address] [place] [address] [id number] OSITO PATEL Self - patient is the insured [facility] [address] [address] [place] [address] PLEASE VERIFY IF PT HAS INS. OSITO PATEL Self - patient is the insured MEDICAID OF [facility] [address] [place] [address] [id number] OSITO PATEL Self - patient is the insured
--- OUTSIDE RECORDS SUMMARY | 2025-06-26 16:52 | XMS_ITS | Patient Health Record ---
Author Organization [facility] [place] Address [address] [place] [address] Care Team Providers Care [employer] Registrar Name Role Phone Glenn Ren Primary Care Provider France Guillermo Unavailable [phone] Allergies Allergen (clinical drug ingredient) Drug/Non Drug Allergy documented on EMR Reaction Allergy Type Onset Date Status aspirin Aspirin Unknown Drug Allergy Active Reason For Referral No Information Medications Medication SIG (Take, Route, Frequency, Duration) Notes Start Date End Date Status predniSONE 5 MG 4 tablets once a day for 3 days, 3 tablets once a day for 3 days, 2 tablets once a day for 3 days, 1 tablet once a day for 3 days Orally; Duration: 12 days Active Night Splint AFO - L1930 1 wear when at rest; Duration: 30 days Active Ferrous Sulfate 325 (65 Fe) MG 1 tablet Orally Three times a Week Active Levothyroxine Sodium 100 MCG 1 tablet in the morning on an empty stomach Orally Once a day Active Atorvastatin Calcium 40 MG 1 tablet Oral ly Once a day Active Social History Tobacco [...] Problem Status W/U Status Risk Notes Problem 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 Vital Signs Blood pressure diastolic 65 mm Hg 06/10/2025 Height 5' 3 in 06/10/2025 Blood pressure systolic 126 mm Hg 06/10/2025 Weight 162 lbs 06/10/2025 BMI 28.69 kg/m2 06/10/2025 Encounters Encounter Location Date Provider Diagnosis [address] [address] 04/30/2025 France Lopez Achilles tendinitis of left lower extremity M76.62 ; Pain of left heel M79.672 ; 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 ; Keith's deformity of left heel M92.62 and Short Achilles tendon (acquired), left ankle M67.[address] [address] 06/10/2025 France Lopez Achilles tendinitis of left lower extremity M76.62 ; Pain of left heel M79.672 ; 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 ; Keith's deformity of left heel M92.62 and Short Achilles tendon (acquired), left ankle M67.[address] [address] 02/12/2025 France Lopez [address] [address] 04/24/2025 France Lopez [address] [address] 06/10/2025 France Lopez Assessments Encounter Date Diagnosis (ICD Code) Assessment Notes Treatment Notes Treatment Clinical Notes Section Notes 04/30/2025 Achilles tendinitis of left lower extremity (ICD-10 - M76.62) Patient Educated with: HEEL CORD STRETCHES.pdf (HEEL CORD STRETCHES.pdf) Patient Educated with: RICE THERAPY.pdf (RICE THERAPY.pdf) 06/10/2025 Achilles tendinitis of left lower extremity (ICD-10 - M76.62) Patient Educated with: HEEL CORD STRETCHES.pdf (HEEL CORD STRETCHES.pdf) Patient Educated with: RICE THERAPY.pdf (RICE THERAPY.pdf) 04/30/2025 Pain of left heel (ICD-10 - M79.672) 06/10/2025 Pain of left heel (ICD-10 - M79.672) 06/10/2025 Exostosis of left posterior calcaneus (ICD-10 - M77.32) 04/30/2025 Exostosis of left posterior calcaneus (ICD-10 - M77.32) 06/10/2025 Keith's deformity of left heel (ICD-10 - M92.62) 04/30/2025 Keith's deformity of left heel (ICD-10 - M92.62) 04/30/2025 Short Achilles tendon (acquired), 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 65 Medicare Preferred [address] [place] [address] [phone] [id number] Rosalind Gerard Self - patient is the insured Medical (General) History Medical History History ICD Code Anemia Back pain Cholesterol Cataracts Diverticulosis thyroid Measles Surgical History Surgery Date(Month/Year) 06/15/1997 sigmoid 05/2012 cataract surgery 05/15/2024
== END 2025-06-26 14:37 | disposition home or self-care (01) ==
LOC: HO.HMCH 13:55
DX: Z00.00 Encounter for general adult medical examination without abnormal findings (principal); E78.5 Hyperlipidemia, unspecified; E03.9 Hypothyroidism, unspecified; E55.9 Vitamin D deficiency, unspecified; I10 Essential (primary) hypertension; S93.402D Sprain of unspecified ligament of left ankle, subsequent encounter; Z12.11 Encounter for screening for malignant neoplasm of colon; M77.50 Other enthesopathy of unspecified foot and ankle

== ENCOUNTER → 2025-06-26 13:54 | Outpatient (BNVA) | payer MEDICARE, SELFPAY | PROVIDERS: PCP Internal Medicine | DX: Z00.00 Encounter for general adult medical examination without abnormal findings (principal); E78.5 Hyperlipidemia, unspecified; E03.9 Hypothyroidism, unspecified; E55.9 Vitamin D deficiency, unspecified; I10 Essential (primary) hypertension; M77.50 Other enthesopathy of unspecified foot and ankle; D36.9 Benign neoplasm, unspecified site; S93.402D Sprain of unspecified ligament of left ankle, subsequent encounter; X58.XXXD Exposure to other specified factors, subsequent encounter | CPT/HCPCS: 96127; 99397 ==

== ENCOUNTER 2025-07-14 12:29 | Outpatient (REF) | payer MEDICARE, SELFPAY ==
--- OUTSIDE RECORDS SUMMARY | 2024-10-30 06:00 | XMS_ITS ---
Author Organization [facility] Address [address] [place] [address] Care Team Providers Care Ball Sorter Name Role Phone Lesli RAY, Bobo Primary Care Provider Yoshi Sparks [phone] REASON FOR VISIT COLON SCREENING Encounters Encounter Location Date Provider Diagnosis [facility] [address] [place] [phone] 10/30/2024 Yoshi Davies Plan Of Treatment No Information Progress Notes * OSITO WELCHDOB: (69 yo F)Acc No.[id number]:10/30/2024 Progress Notes Patient: OSITO URIBE Provider: Anthony Davies MD :1955 A ge:69 Y S ex:Female Date:10/30/2024 Address:[address] [place], [place] [id number] Pcp:Bobo Ballesteros MD Subjective: * Chief Complaints: [...] MD Date: 0 10/30/2024 Generated for Jyoti borjas/Karina/eTginnasmitting on: 0 07/14/2025 01:38 PM EDT
--- OUTSIDE RECORDS SUMMARY | 2025-07-14 13:38 | XMS_ITS | Patient Health Record ---
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 Vital Signs Blood pressure diastolic 65 mm Hg 06/10/2025 Height 5' 3 in 06/10/2025 Blood pressure systolic 126 mm Hg 06/10/2025 Weight 162 lbs 06/10/2025 BMI 28.69 kg/m2 06/10/2025 Encounters Encounter Location Date Provider Diagnosis [address] [address] 04/30/2025 France Lopez Achilles tendinitis of left lower extremity M76.62 ; Pain of left heel M79.672 ; 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 ; Keith's deformity of left heel M92.62 and Short Achilles tendon (acquired), left ankle M67.[address] [address] 06/10/2025 France Lopez Achilles tendinitis of left lower extremity M76.62 ; Pain of left heel M79.672 ; 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 ; Keith's deformity of left heel M92.62 and Short Achilles tendon (acquired), left ankle M67.[address] [address] 02/12/2025 France Lopez [address] [address] 04/24/2025 France Lopez [address] [address] 06/10/2025 France Lopez Assessments Encounter Date Diagnosis [...] Provider Name:France Garcia wes, 08/05/2025 01:30:00 PM, [address] [place] [address], [phone], Insurance Providers Payer Name Payer Address Payer Phone Subscriber Number Group Number Insured Name Patient Relationship to Insured Coverage Start Date Coverage End Date [facility] 65 Medicare Preferred [address] [place] [address] [phone] [id number] Rosalind Gerard Self - patient is the insured Medical (General) History Medical History History ICD Code Anemia Back pain Cholesterol Cataracts Diverticulosis thyroid Measles Surgical History Surgery Date(Month/Year) 06/15/1997 sigmoid 05/2012 cataract surgery 05/15/2024
--- OUTSIDE RECORDS SUMMARY | 2025-07-14 13:38 | XMS_ITS | Patient Health Record ---
Author Organization [facility] Address [address] [place] [address] Care Team Providers Care Autocutter Name Role Phone Bobo Ballesteros MD Primary Care Provider Unavaila Yoshi Rodney [phone] Reason For Referral No Information Encounters Encounter Location Date Provider Diagnosis [facility] [address] [place] [address] 10/30/2024 Yoshi Davies Plan Of Treatment No Information Insurance Providers Payer Name Payer Address Payer Phone Subscriber Number Group Number Insured Name Patient Relationship to Insured Coverage Start Date Coverage End Date MEDICARE OF [place] [address] [place] [phone] [id number] OSITO PATEL Self - patient is the insured [facility] [address] [address] [place] [address] PLEASE VERIFY IF PT HAS INS. OSITO PATEL Self - patient is the insured MEDICAID OF [facility] [address] [place] [address] [phone] [id number] OSITO PATEL Self - patient is the insured
== END 2025-07-14 12:30 | disposition home or self-care (01) ==
LOC: HO.MAMMO 12:29
DX: Z12.31 Encounter for screening mammogram for malignant neoplasm of breast (principal)
CPT/HCPCS: 77063; 77067

== ENCOUNTER → 2025-07-14 12:45 | Outpatient (BNV) | payer MEDICARE, SELFPAY | PROVIDERS: Visit Provider Internal Medicine | DX: Z12.31 Encounter for screening mammogram for malignant neoplasm of breast (principal) | CPT/HCPCS: 77063; 77067 ==